=== PATIENT | female | born 1995 | race Caucasian/White ===

== ENCOUNTER 2019-10-15 08:29 | Observation (INO) | payer BC, SELFPAY ==
[2019-10-15] VITALS (12 sets, daily range): BP systolic 112–125; BP diastolic 79–86; PULSE 75–87; RESP 14–20; TEMP 36.8–36.9; O2SAT 98–99; BMI 31.1
--- NOTE | 2019-10-15 08:33 | W.ED.ABDPA2 ---
HPI - Abdominal Pain General: Chief Complaint: Abdominal Pain Stated Complaint: R SIDE PAIN/N/V Time Seen by Provider: 10/15/19 08:31 Source: patient Mode of arrival: ambulatory Limitations: no limitations History of Present Illness: HPI narrative: Patient is a 24-year-old female who presents to ED today with a complaint of left upper abdominal and back pain. Patient tells me pain initially began yesterday and began fairly suddenly. She states pain has been constant with severe exacerbations. She states prior to getting a room in the emergency department she did have one episode of vomiting in the waiting room. She also reports 2 episodes of diarrhea today. She has not noticed any blood in her stools or vomit. She has not been running fevers. She does not complain of dysuria, urgency, frequency, hesitancy, hematuria. LMP was 1 week ago. No history of kidney stones although mother states they do run in the family. MD elicited complaint: abdominal pain Onset (ago): hour(s) Pain Consistency: constant Location: LUQ and L flank Severity: moderate Quality: sharp Exacerbating factors: nothing Relieving factors: nothing Associated Symptoms: Reports chills, diarrhea, nausea and vomiting; Denies coffee ground emesis, dysuria, fever(s), heartburn, hematochezia, hematemesis and melena Review of Systems Const: Reports: chills; Denies: fever(s), body aches, change in appetite, change in weight, fatigue or malaise ENMT: Reports: other (no sore throat) Card: Denies: chest pain Resp: Denies: dyspnea, productive cough, non-productive cough or chest congestion GI: Reports: abdominal pain, nausea, vomiting and diarrhea; Denies: hematemesis, coffee ground emesis, heartburn, hematochezia or melena : Reports: flank pain; Denies: difficulty voiding, dysuria, urinary frequency, urinary urgency or urinary hesitancy Musc: Denies: neck pain, back pain, extremity pain, extremity swelling, joint pain or joint swelling Skin/Breast: Denies: rash Neuro: Denies: headache(s), numbness in extremities, weakness in extremities or sensory changes PFS ED PFSH: Family History (Updated 02/27/19 @ 11:17 by Enedina Troncoso RN) Mother Hypertension Family/Other Hypertension maternal aunt Heart disease maternal side in general Social History (Updated 02/27/19 @ 11:17 by Enedina Troncoso RN) Smoking and tobacco status: never smoked Alcohol intake: never Additional social history: well balanced diet Physical Exam Const: COMMON NORMALS: no acute distress, average body habitus, patient oriented x3, no limitations, healthy appearing, alert and well nourished HENMT: COMMON NORMALS: normocephalic and atraumatic HEAD & SCALP: normocephalic and atraumatic THROAT: posterior oropharynx normal, tonsils normal and uvula midline Eye: GENERAL EYE: appearance normal, both eyes and all related structures Neck/C-Spine: GENERAL: Yes normal visual inspection CERVICAL SPINE: Yes cervical ROM normal Resp: COMMON NORMALS: normal respiratory effort and clear to auscultation bilaterally AUSCULTATION: clear to auscultation bilaterally Cardio: COMMON NORMALS: regular rate and regular rhythm RATE: regular rate RHYTHM: regular rhythm GI: COMMON NORMALS: Normal to inspection, nondistended, normoactive bowel sounds present, Soft to palpation, No hepatosplenomegaly present and no masses PALPATION: Yes Soft to palpation, Yes Tenderness to palpation present (GI) (L lateral abdomen) Details: LUQ and Yes No hepatosplenomegaly present : BLADDER/KIDNEY EXAM: Yes CVA tenderness on the left Back/Pelvis: COMMON NORMALS: thoracic and lumbar spine normal to inspection, no thoracic nor lumbar tenderness and thoraco-lumbar ROM normal GENERAL BACK: Yes CVA tenderness Extremity: COMMON NORMALS: normal to inspection Neuro: COMMON NORMALS: patient oriented x3 SENSORIUM/ORIENTATION: Yes alert Skin: COMMON NORMALS: no rashes or lesions noted GENERAL SKIN EXAM: no rashes or lesions noted Course Consultations: Consultation #1: Dr. Cortez-graciously accepts admission due to not being able to control patient's pain here in ED Vital Signs: Vital signs: Vital Signs Temperature 98.2 F 10/15/19 08:35 Pulse Rate 78 10/15/19 08:35 Respiratory Rate 18 10/15/19 11:11 Blood Pressure 125/86 10/15/19 08:35 Pulse Oximetry 99 10/15/19 08:35 MDM - Abdominal Pain MDM Narrative: Medical decision making narrative: Patient has a large 8 x 6 mm proximal ureter stone causing moderate obstruction. Patient's initial UA was a clean-catch showing leuks, WBCs, bacteria but also with squamous cells. This urine sample was re-collected using cath method and appears clean. Patient's pain has not been able to be controlled in the emergency department despite repeat IV narcotic dosing. I have spoken to Dr. Cortez who will admit patient to his service. Lab Data: Labs: Lab Results 10/15/19 10/15/19 10/15/19 Range/Units 08:49 08:58 08:58 WBC 9.0 (4.0-10.0) 10^3/ uL RBC 4.83 (4.1-5.3) 10^6/u L Hgb 13.0 (11.5-15.3) g/dL Hct 41.9 (37.0-47.0) % MCV 86.7 (81-99) fL MCH 26.9 L (28.0-34.0) pg MCHC 31.0 (30.0-36.0) g/dL RDW 12.8 (12.1-15.1) % Plt Count 231 (130-400) 10^3/c mm MPV 10.7 H (7.4-10.4) fL Neut % (Auto) 76.3 % Lymph % (Auto) 18.6 % Nelson % (Auto) 3.7 % Eos % (Auto) 0.7 % Baso % (Auto) 0.4 % Neut # (Auto) 6.83 (1.8-7.7) 10^3/u L Lymph # (Auto) 1.7 (0.8-4.8) 10^3/u L Nelson # (Auto) 0.3 (0.2-0.9) 10^3/u L Eos # (Auto) 0.1 (0.0-0.8) 10^3/u L Baso # (Auto) 0.0 (0.0-0.1) 10^3/u L Nucleated RBC % (a uto) 0 % Nucleated RBCs # 0.0 /100WBC Sodium 140 (136-145) mmol/L Potassium 3.8 (3.5-5.1) mmol/L Chloride 104 (98-107) mmol/L Carbon Dioxide 26 (22-29) mmol/L Anion Gap 13.8 (5-19) BUN 10 (6-20) mg/dL Creatinine 0.7 (0.5-0.9) mg/dL GFR Calculation 102.0 (90-130) mL/min Glucose 111 (65-115) mg/dL Calculated Osmolal ity 287 (285-295) mOsm/k g Calcium 9.4 (8.5-10.5) mg/dL Total Bilirubin 0.3 (0.15-1.2) mg/dL AST 14 (0-32) U/L ALT 12 (0-33) U/L Alkaline Phosphata se 67 (35-105) IU/L Total Protein 7.7 (6.6-8.7) g/dL Albumin 4.7 (3.5-5.2) g/dL Globulin 3.0 (1.3-4.6) g/dL Lipase 23 (13-60) U/L HCG, Qual (Negative) Urine Color Yellow (Yellow) Urine Appearance Sl hazy (CLEAR) Urine pH 5.0 (5-7) Ur Specific Gravit y 1.025 (1.005-1.030) Urine Protein Neg (Negative) Urine Glucose (UA) Norm (Normal) Urine Ketones Negative (Negative) Urine Blood 2+ H (Negative) Urine Nitrate Negative (Negative) Urine Bilirubin Neg (NEGATIVE) Urine Urobilinogen Norm (Negative) mg/dL Ur Leukocyte Maya ase 2+ H (Negative) Urine RBC 50-80 H (0-2) /hpf Urine WBC 10-15 H (0-5) /hpf Ur Squamous Epith Cells 10-15 H (0-5) Amorphous Sediment Not Reportable Urine Bacteria 2+ H (NONE) Urine Mucus Trace 10/15/19 10/15/19 Range/Units 08:58 11:37 WBC (4.0-10.0) 10^3/ uL RBC (4.1-5.3) 10^6/u L Hgb (11.5-15.3) g/dL Hct (37.0-47.0) % MCV (81-99) fL MCH (28.0-34.0) pg MCHC (30.0-36.0) g/dL RDW (12.1-15.1) % Plt Count (130-400) 10^3/c mm MPV (7.4-10.4) fL Neut % (Auto) % Lymph % (Auto) % Nelson % (Auto) % Eos % (Auto) % Baso % (Auto) % Neut # (Auto) (1.8-7.7) 10^3/u L Lymph # (Auto) (0.8-4.8) 10^3/u L Nelson # (Auto) (0.2-0.9) 10^3/u L Eos # (Auto) (0.0-0.8) 10^3/u L Baso # (Auto) (0.0-0.1) 10^3/u L Nucleated RBC % (a uto) % Nucleated RBCs # /100WBC Sodium (136-145) mmol/L Potassium (3.5-5.1) mmol/L Chloride (98-107) mmol/L Carbon Dioxide (22-29) mmol/L Anion Gap (5-19) BUN (6-20) mg/dL Creatinine (0.5-0.9) mg/dL GFR Calculation (90-130) mL/min Glucose (65-115) mg/dL Calculated Osmolal ity (285-295) mOsm/k g Calcium (8.5-10.5) mg/dL Total Bilirubin (0.15-1.2) mg/dL AST (0-32) U/L ALT (0-33) U/L Alkaline Phosphata se (35-105) IU/L Total Protein (6.6-8.7) g/dL Albumin (3.5-5.2) g/dL Globulin (1.3-4.6) g/dL Lipase (13-60) U/L HCG, Qual Negative (Negative) Urine Color Yellow (Yellow) Urine Appearance Clear (CLEAR) Urine pH 6 (5-7) Ur Specific Gravit y 1.020 (1.005-1.030) Urine Protein Neg (Negative) Urine Glucose (UA) Norm (Normal) Urine Ketones 1+ H (Negative) Urine Blood 2+ H (Negative) Urine Nitrate Negative (Negative) Urine Bilirubin Neg (NEGATIVE) Urine Urobilinogen Norm (Negative) mg/dL Ur Leukocyte Maya ase Negative (Negative) Urine RBC (0-2) /hpf Urine WBC (0-5) /hpf Ur Squamous Epith Cells (0-5) Amorphous Sediment Urine Bacteria (NONE) Urine Mucus Imaging Data ^: CT Abd/Pel: Radiologist's impression: [facility] [address] [place] [address] CT Scan Report Signed Patient: Adeola Cai Unit #: [id number] : 1995 Age/Sex: 24 / F ADM Date: 10/15/19 Loc: ER Room/Bed: Attending Dr: Ordering Provider/Ordering MD: Lissett Christensen Date of Service: 10/15/19 Procedure(s): CT kidney stone 65881 Accession Number(s): [id number] Report Number: [id number] WS: [id number] CT ABDOMEN AND PELVIS NONCONTRAST HISTORY: L flank/abdominal pain TECHNIQUE: Imaging performed through the abdomen and pelvis. Coronal and sagittal reformats are submitted. All CT scans at [facility] use at least one of these dose optimization techniques: automated exposure control; mA and/or kV adjustment per patient size (includes targeted exams where dose is matched to clinical indication); or iterative reconstruction. DLP: 1180.99 mGy.cm COMPARISON: 03/25/2016 Lower thorax: Lung bases are clear. No hiatal hernia. Liver: Liver is top normal size. No mass or intrahepatic dilatation. Gallbladder: Normal gallbladder. Pancreas: Normal. Spleen: Normal. Adrenal glands: Normal. Right kidney: Normal size kidney. 2 mm nonobstructing calcification upper pole. No obstruction. Left kidney: Mild enlargement and perinephric stranding. Moderate hydronephrosis and hydroureter. Within the proximal LEFT ureter is a slightly lobulated 8 x 6 mm calcification versus 2 adjacent calcifications. Ureter distal to the calcification is normal. There are a few additional nonobstructing calcifications lower pole LEFT kidney. Abdominal aorta and IVC are unremarkable. No free fluid, intraperitoneal air or significant lymphadenopathy. GI tract: Unremarkable. Abdominal wall: Intact. Pelvis: Slightly retroverted uterus. Bilateral ovarian follicles. No free fluid. Minimally distended urinary bladder. Osseous structures: Mild RIGHT convex curvature lumbar spine. Bilateral SI joint sclerosis. Progressed significantly since 2017. CT/CT kidney stone [id number] IMPRESSION: 1. A single versus 2 adjacent 8 x 6 mm calcifications in the proximal LEFT ureter causing a moderate hydroureteronephrosis. 2. Mild enlargement and edema LEFT kidney due to the obstruction. 3. Normal appendix. 4. Bilateral sacroiliitis with progression since 2017. Dictated By: Romana Syed DO Signed By: Romana Syed DO Signed Date/Time: 10/15/19 1011 DD/ 1004 Discharge Plan Discharge Patient Disposition: Admitted As Inpatient Clinical Impression: Calculus of left ureter, Intractable pain Condition: Stable Prescriptions: No Action Tylenol Extra Strength 500 mg Tablet 500 mg PO PRN RF: 0 Pepto-Bismol 262 mg Tablet,Chewable 2 tab PO PRN RF: 0 Referrals: Colmenares,ISAIAS Weaver [Primary Care Provider] - Coding Level of Care Code ED Senior Peoplesoft Developer for Chg Fwd Exam Comprehensive
[2019-10-15 09:07] LABS: Basophils % 0.4 %; Eosinophils # 0.1 10^3/uL (0.0-0.8); Eosinophils % 0.7 %; Hematocrit 41.9 % (37.0-47.0); Lymphocytes # 1.7 10^3/uL (0.8-4.8); Lymphocytes % 18.6 %; Mean Corpuscular Hemoglobin 26.9 pg (28.0-34.0); Mean Corpuscular Volume 86.7 fL (81-99); Mean Platelet Volume 10.7 fL (7.4-10.4); Monocytes # 0.3 10^3/uL (0.2-0.9); Monocytes % 3.7 %; Neutrophils # 6.83 10^3/uL (1.8-7.7); Neutrophils % 76.3 %; Nucleated Red Blood Cells % 0 %; Platelet Count 231 10^3/cmm (130-400); Red Blood Count 4.83 10^6/uL (4.1-5.3); Red Cell Distribution Width 12.8 % (12.1-15.1)
[2019-10-15 09:24] LABS: HCG, Serum Qual Negative (Negative)
[2019-10-15 09:28] LABS: Alanine Aminotransferase 12 U/L (0-33); Albumin Level 4.7 g/dL (3.5-5.2); Alkaline Phosphatase 67 IU/L (35-105); Anion Gap 13.8 (5-19); Aspartate Amino Transferase 14 U/L (0-32); Blood Urea Nitrogen 10 mg/dL (6-20); Calcium 9.4 mg/dL (8.5-10.5); Carbon Dioxide 26 mmol/L (22-29); Chloride 104 mmol/L (98-107); Creatinine Clr Calc Pharmacy 118.1231; Glucose 111 mg/dL (65-115); Lipase 23 U/L (13-60); Osmolality Calculated 287 mOsm/kg (285-295); Potassium 3.8 mmol/L (3.5-5.1); Sodium 140 mmol/L (136-145); Total Bilirubin 0.3 mg/dL (0.15-1.2); Total Protein 7.7 g/dL (6.6-8.7)
[2019-10-15] MEDS: ondansetron 2 mg/ML SDV 2 mL 4 MG IVP ×2 (09:30→16:05)
[2019-10-15] MEDS: morphine 4 mg/mL SDV 1 mL IVP ×4 (09:32→21:23)
[2019-10-15 09:33] LABS: Add Urine Culture? Yes; Add Urine Microscopic? YES; Bacteria Urine 2+; Bilirubin Urine Neg (NEGATIVE); Blood Urine 2+ (Negative); Glucose Urine UA Norm (Normal); Ketones Urine Negative (Negative); Leukocyte Esterase Urine 2+ (Negative); Mucus Urine TRACE; Nitrate Urine Negative (Negative); Protein Urine Neg (Negative); RBC Urine 50-80 /hpf (0-2); Specific Gravity, Urine 1.025 (1.005-1.030); Urine Appearance SL Hazy (CLEAR); Urine Color Yellow (Yellow); Urobilinogen Urine Norm (Negative)
[2019-10-15] MEDS: sodium chloride 0.9% 1,000 ML 999 ML IV ×2 (09:33→14:16)
--- NOTE | 2019-10-15 09:34 | CT_ITS ---
WS: [id number] CT ABDOMEN AND PELVIS NONCONTRAST HISTORY: L flank/abdominal pain TECHNIQUE: Imaging performed through the abdomen and pelvis. Coronal and sagittal reformats are submi tted. All CT scans at [facility] use at least one of these dose optimization techniques: automated exposure control; mA and/or kV adjustment per patient size (includes targeted exams where d ose is matched to clinical indication); or iterative reconstruction. DLP: 1180.99 mGy.cm COMPARISON: 03/25/2016 Lower thorax: Lung bases are clear. No hiatal hernia. Liver: Liver is top normal size. No mass or intrahepatic dilatation. Gallbladder: Normal gallbladder. Pancreas: Normal. Spleen: Normal. Adrenal glands: Normal. Right kidney: Normal size kidney. 2 mm nonobstructing calcification upper pole. No obstruction. Left kidney: Mild enlargement and perinephric stranding. Moderate hydronephrosis and hydroureter. Wit hin the proximal LEFT ureter is a slightly lobulated 8 x 6 mm calcification versus 2 adjacent calcifi cations. Ureter distal to the calcification is normal. There are a few additional nonobstructing calc ifications lower pole LEFT kidney. Abdominal aorta and IVC are unremarkable. No free fluid, intraperitoneal air or significant lymphadenopathy. GI tract: Unremarkable. Abdominal wall: Intact. Pelvis: Slightly retroverted uterus. Bilateral ovarian follicles. No free fluid. Minimally distended urinary bladder. Osseous structures: Mild RIGHT convex curvature lumbar spine. Bilateral SI joint sclerosis. Progresse d significantly since 2017. CT/CT kidney stone [id number] IMPRESSION: 1. A single versus 2 adjacent 8 x 6 mm calcifications in the proximal LEFT ure ter causing a moderate hydroureteronephrosis. 2. Mild enlargement and edema LEFT kidney due to the obstruction. 3. Normal appendix. 4. Bilateral sacroiliitis with progression since 2017.
[2019-10-15] MEDS: cefTRIAXone 1,000 MG in sodium chloride 0.9% (plus) 50 ML 100 MG IV (11:49)
[2019-10-15 12:06] LABS: Bilirubin Urine Neg (NEGATIVE); Blood Urine 2+ (Negative); Glucose Urine UA Norm (Normal); Ketones Urine 1+ (Negative); Leukocyte Esterase Urine Negative (Negative); Nitrate Urine Negative (Negative); Protein Urine Neg (Negative); Urine Appearance Clear (CLEAR); Urine Color Yellow (Yellow); Urobilinogen Urine Norm (Negative); pH Urine 6 (5-7)
[2019-10-15] MEDS: fentaNYL 50 mcg/mL INJ 2mL IVP (12:09)
[2019-10-15 12:47] LABS: Add Urine Microscopic? YES
[2019-10-15] MEDS: oxyCODONE-APAP 5-325 mg Tablet 1 TAB PO ×2 (15:06→20:58)
[2019-10-15] MEDS: sodium chloride 0.9% 1,000 ML 150 ML IV ×2 (15:13→20:58)
[2019-10-15] MEDS: tamsulosin 0.4 mg Capsule PO (15:13)
--- NOTE | 2019-10-15 18:35 | P.HP_ITS ---
Providers/Chief Complaint Admitting Physician: Norris Cortez MD Primary Care Provider: Meg Colmenares APN Chief Complaint: R SIDE PAIN/N/V History of Present Illness Adeola Cai is a 24 year old female who I evaluated for the first time today after being admitted through the emergency department for refractory left renal colic secondary to an 8 mm left proximal ureteral stone. She was aggressively treated with pain medication in the emergency department but is simply could not be adequately controlled. She was also having severe nausea and vomiting. No evidence of active infection. Denies fever or chills. First stone. Does have a family history of stones. Review of Systems Const: Denies: fever(s), chills or body aches Eyes: Denies: change in vision or blurry vision ENMT: Denies: throat pain or change in hearing Card: Denies: chest pain, palpitations or irregular heart rhythm Resp: Denies: dyspnea, productive cough or wheezing GI: Reports: abdominal pain, nausea and vomiting : Reports: flank pain and urinary urgency; Denies: difficulty voiding Musc: Reports: back pain; Denies: neck pain, joint redness or joint warmth Skin/Breast: Denies: rash or new lesions Neuro: Denies: headache(s), numbness in extremities or confusion Psych: Denies: anxiety or depression Endo: Denies: flushing or hot flashes Andrew/Lymph: Denies: easy bruising, easy bleeding or enlarged lymph nodes All/Imm: Denies: urticaria or throat swelling Medications/Allergies Home Medications Medication Instructions Recorded Confirmed Last Taken Type acetaminophen [Tylenol Extra 500 mg PO PRN 10/15/19 10/15/19 10/15/19 07:30 History Strength] bismuth subsalicylate 2 tab PO PRN 10/15/19 10/15/19 10/15/19 04:30 History [Pepto-Bismol] Allergies Allergy/AdvReac Type Severity Reaction Status Date / Time promethazine [From Phenergan] Allergy Intermediate confusion, Verified 10/15/19 09:01 loss of memory PFSH Acute PFSH: Medical History (Updated 10/15/19 @ 18:38 by Norris Cortez MD) Contraception management History of ectopic Surgical History (Updated 10/15/19 @ 18:38 by Norris Cortez MD) History of unilateral salpingectomy 03/25/2016-right, due to ruptured ectopic Family History (Updated 10/15/19 @ 18:39 by Norris Cortez MD) Mother Hypertension Family/Other Hypertension maternal aunt Heart disease maternal side in general Other Urolithiasis Social History (Updated 02/27/19 @ 11:17 by Enedina Troncoso RN) Smoking and tobacco status: never smoked Alcohol intake: never Additional social history: well balanced diet Female Reproductive History: Date of last menstrual period: 10/10/19 Vitals/I&O/Wt Last Vital Signs Temp 98.5 F 10/15/19 14:44 Pulse 80 10/15/19 14:44 Resp 18 10/15/19 16:05 BP 124/85 10/15/19 14:44 Pulse Ox 98 10/15/19 14:44 10/15/19 10/15/19 10/15/19 06:59 14:59 22:59 Output Total 150 / 150 Balance -150 / -150 Weight last 48 hrs Weight 170 lb Physical Exam Const: COMMON NORMALS: no acute distress, alert and well nourished GENERAL APPEARANCE: well kempt and well developed ORIENTATION/CONSCIOUSNESS: not confused HENMT: COMMON NORMALS: normocephalic and atraumatic Eye: COMMON NORMALS: conjunctivae normal and no scleral icterus CONJUNCTIVA: Yes conjunctivae normal Neck/C-Spine: COMMON NORMALS: full ROM GENERAL: Yes normal visual inspection Lymph: LYMPHATIC: no lymphadenopathy noted and no lymphedema noted Resp: COMMON NORMALS: normal respiratory effort EFFORT & INSPECTION: No labored and No Actively coughing AUSCULTATION: clear to auscultation bilaterally Cardio: COMMON NORMALS: regular rate and regular rhythm GI: COMMON NORMALS: Soft to palpation PALPATION: Yes Tenderness to palpation present (GI) and No Guarding due to palpation present (GI) : COMMON NORMALS: No no CVA tenderness and Yes normal external appearance BLADDER/KIDNEY EXAM: Yes bladder normal to palpation Back/Pelvis: GENERAL BACK: Yes CVA tenderness CVA tenderness: left Extremity: COMMON NORMALS: no clubbing, cyanosis or edema Neuro: COMMON NORMALS: no focal motor deficits SENSORIUM/ORIENTATION: Yes alert Psych: COMMON NORMALS: mental status grossly normal APPEARANCE: Yes grossly normal and Yes well kempt ATTITUDE: Yes calm and Yes engaged Skin: COMMON NORMALS: no rashes or lesions noted and no jaundice Data : 10/16/19 04:50 10/16/19 04:50 A&P Assessment and plan (1) Intractable pain: Severe left renal colicky symptoms very difficult to control with large doses of narcotics in the emergency department requiring hospitalization for pain control. Source of pain is a large left proximal ureteral stone with obstructive changes. Status: Acute (2) Calculus of left ureter: 8 mm plus left proximal ureteral stone with obstruction. Failed outpatient management. Could not get pain well controlled with narcotics parenterally enough to be L to send home. Status: Acute Attestations Medical Necessity Statement*: Could not be managed outpatient due to refractory pain. Low chance of spontaneous passage of stone. Will consider treatment while hospitalized. Coding Level of Care Code Acute Victim Witness Administrator for Crystal Fwd Exam Comprehensive Diagnoses Intractable pain R52 Calculus of left ureter N20.1
[2019-10-16] VITALS (19 sets, daily range): BP systolic 104–133; BP diastolic 69–88; PULSE 90–106; RESP 16–20; TEMP 36.6–37.3; O2SAT 93–98
[2019-10-16] MEDS: morphine 4 mg/mL SDV 1 mL IVP ×2 (03:45→13:34)
[2019-10-16] MEDS: ondansetron 2 mg/ML SDV 2 mL 4 MG IVP ×3 (03:46→20:38)
[2019-10-16] MEDS: sodium chloride 0.9% 1,000 ML 150 ML IV ×2 (03:46→21:53)
[2019-10-16 05:20] LABS: Basophils % 0.4 %; Eosinophils % 0.5 %; Hematocrit 37.4 % (37.0-47.0); Hemoglobin 11.3 g/dL (11.5-15.3); Lymphocytes # 1.7 10^3/uL (0.8-4.8); Lymphocytes % 20.4 %; Mean Corpuscular HGB Conc 30.2 g/dL (30.0-36.0); Mean Corpuscular Hemoglobin 26.8 pg (28.0-34.0); Mean Corpuscular Volume 88.8 fL (81-99); Mean Platelet Volume 11.1 fL (7.4-10.4); Monocytes # 0.6 10^3/uL (0.2-0.9); Monocytes % 7.1 %; Neutrophils % 71.2 %; Nucleated Red Blood Cells % 0 %; Platelet Count 147 10^3/cmm (130-400); Red Blood Count 4.21 10^6/uL (4.1-5.3); Red Cell Distribution Width 12.9 % (12.1-15.1); White Blood Count 8.4 10^3/uL (4.0-10.0)
[2019-10-16 05:48] LABS: Anion Gap 11.7 (5-19); Blood Urea Nitrogen 8 mg/dL (6-20); Calcium 7.9 mg/dL (8.5-10.5); Carbon Dioxide 21 mmol/L (22-29); Chloride 107 mmol/L (98-107); Glomerular Filtration Rate 76.3 mL/min (90-130); Glucose 112 mg/dL (65-115); Osmolality Calculated 279 mOsm/kg (285-295); Potassium 3.7 mmol/L (3.5-5.1); Sodium 136 mmol/L (136-145)
--- NOTE | 2019-10-16 06:00 | XR_ITS ---
WS: [id number] EXAM: ABDOMINAL KUB DATE OF EXAMINATION: 10/16/2019, 0550 hours COMPARISON: CT of the abdomen and pelvis from one day prior. HISTORY: Patient is 24 years old with follow-up left ureteral stone. FINDINGS: Bowel gas pattern is fairly normal other than air-filled loops of nondilated small bowel. The bilobed or 2 areas of calcification in the proximal left ureter appear to be in stable position. Estimated 7 mm in [id number] dimension and 1 cm in vertical dimension. Now located at the L2-3 disc level on t his exam. Similar to the CT exam. No calcifications seen over the right kidney or course of the right ureter or lower left ureter. XR/XR KUB [id number] IMPRESSION: Either 2 stones or bilobed stone on the left in stable position as compared to imaging from one day prior. Located at the L2-3 level.
--- NOTE | 2019-10-16 06:33 | PC.NURSE ---
Shift Summary: Pt rested well this evening, pain fairly well controlled with one episode of nausea. Moderate urine output, clear in color with no stones noted.
--- NOTE | 2019-10-16 07:03 | PM.PN ---
Subjective Subjective: Interval history: Still with intermittent left renal colicky symptoms but much better controlled than yesterday. KUB this morning shows the stone has not progressed at all. No fever no chills no other septic concerns. Reviewed again her options. After detailed discussion she is elected to proceed with extracorporeal shockwave lithotripsy when the machine is available this evening with or without stent pending response to treatment. Informed consent was obtained after detailed explanation. Decision for surgery Vitals/I&O/Wt Last Vital Signs Temp 97.8 F 10/16/19 04:00 Pulse 97 10/16/19 04:00 Resp 20 H 10/16/19 04:00 BP 104/70 10/16/19 04:00 Pulse Ox 94 10/16/19 04:00 10/15/19 10/16/19 10/16/19 22:59 06:59 14:59 Intake Total 1062.5 / 1062.5 1000 / 2062.5 Output Total 425 / 425 400 / 825 Balance 637.5 / 637.5 600 / 1237.5 Weight last 48 hrs Weight 170 lb Physical Exam Const: COMMON NORMALS: no acute distress, alert and well nourished GENERAL APPEARANCE: well kempt and well developed ORIENTATION/CONSCIOUSNESS: not confused Resp: COMMON NORMALS: normal respiratory effort EFFORT & INSPECTION: No labored and No Actively coughing Extremity: COMMON NORMALS: no clubbing, cyanosis or edema Neuro: SENSORIUM/ORIENTATION: Yes alert Psych: COMMON NORMALS: mental status grossly normal APPEARANCE: Yes grossly normal and Yes well kempt ATTITUDE: Yes calm and Yes engaged Data : 10/16/19 04:50 10/16/19 04:50 A&P Assessment and plan (1) Calculus of left ureter: No progress of the stone. Still requiring pain medication. Options discussed including conservative management. She elected rather than that to proceed with intervention. ESWL will be here this evening Status: Acute (2) Intractable pain: Status: Acute Attestations Medical Necessity Statement*: Admitted for left renal colic that was refractory. No progress on the stone. Has chosen therapy while inpatient in order to avoid recurrent renal colic Coding Level of Care Code Acute Surgical Instrument Maker for [facility] Pamela Diagnoses Calculus of left ureter N20.1 Intractable pain R52
--- NOTE | 2019-10-16 07:22 | PC.NURSE ---
patient resting with eyes closed upon entering room, patient easily aroused, denies pain with decrease nausea.
--- NOTE | 2019-10-16 08:33 | P.ANESASSM_ITS ---
Pre-Anesthetic Assessment Pre-Anesthetic Assessment: Height/Weight: Height 1.57 m Weight 77.111 kg Temp Pulse Resp BP Pulse Ox 98.0 F 94 16 110/75 98 10/16/19 07:17 10/16/19 07:17 10/16/19 07:17 10/16/19 07:17 10/16/19 07:17 Proposed Procedure: Operation Date: 10/16/19 18:00 Proposed Procedures s cytoscopy(Left) - Norris Cortez MD p ESWL(Left) - Norris Cortez MD s Retrograde Pyelogram(Left) - MD brynn Umaña Laser Lithotripsy(Left) - Norris Cortez MD s Ureteroscopy(Not Applicable) - Norris Cortez MD Familial anesthetic complications: None Last intake: Eating clears; will stop at 0900 Social: Social History: No alcohol and No tobacco Exam: Pre-Anes Outpt Exam: alert, oriented x 3, clear to auscultation bilaterally and regular rate & rhythm Airway: Cervical ROM: WNL MP: 3 Dentition: Full Metabolic: Metabolic: Morbid obesity Anesthetic Plan: ASA status: 1 Anesthesia: General Risk of > 500 ml blood loss (7ml/kg in children): No Meds/Allergies Current Medications: Current Medications Generic Name Dose Route Start Last Admin Trade Name Freq PRN Reason Stop Dose Admin Sodium Chloride 1,000 mls @ 150 m ls/hr 10/15/19 14:44 10/16/19 03:46 Sodium Chloride 0.9% IV 150 mls/hr .Q6H40M MAX Administration Morphine Sulfate 4 mg 10/15/19 14:44 10/16/19 03:45 Morphine IVP 4 mg Q2H PRN Administration SEVERE PAIN Ondansetron HCl 4 mg 10/15/19 14:44 10/16/19 03:46 Zofran IVP 4 mg Q6H PRN Administration NAUSEA AND VOMITI NG Oxycodone/Acetamin ophen 1 tab 10/15/19 14:44 10/15/19 20:58 Percocet 5-325 M g PO 1 tab Q6H PRN Administration stone pain Tamsulosin HCl 0.4 mg 10/15/19 15:15 10/15/19 15:13 Flomax PO 0.4 mg DAILY MAX Administration PFSH Anesthesia PFSH: Medical History (Updated 10/15/19 @ 18:38 by Norris Cortez MD) Contraception management History of ectopic Surgical History (Updated 10/15/19 @ 18:38 by Norris Cortez MD) History of unilateral salpingectomy 03/25/2016-right, due to ruptured ectopic Family History (Updated 10/15/19 @ 18:39 by Norris Cortez MD) Mother Hypertension Family/Other Hypertension maternal aunt Heart disease maternal side in general Other Urolithiasis Social History (Updated 02/27/19 @ 11:17 by Enedina Troncoso RN) Smoking and tobacco status: never smoked Alcohol intake: never Additional social history: well balanced diet Female Reproductive History: Date of last menstrual period: 10/10/19 Data Anesthesia CBC & Chem 7: 10/16/19 04:50 10/16/19 04:50 Other Labs: Laboratory Results - last 48 hr 10/15/19 10/15/19 10/15/19 08:49 08:58 08:58 WBC 9.0 RBC 4.83 Hgb 13.0 Hct 41.9 MCV 86.7 MCH 26.9 L MCHC 31.0 RDW 12.8 Plt Count 231 MPV 10.7 H Neut % (Auto) 76.3 Lymph % (Auto) 18.6 [place] % (Auto) 3.7 Eos % (Auto) 0.7 Baso % (Auto) 0.4 Neut # (Auto) 6.83 Lymph # (Auto) 1.7 [place] # (Auto) 0.3 Eos # (Auto) 0.1 Baso # (Auto) 0.0 Nucleated RBC % (auto) 0 Nucleated RBCs # 0.0 Sodium 140 Potassium 3.8 Chloride 104 Carbon Dioxide 26 Anion Gap 13.8 BUN 10 Creatinine 0.7 GFR Calculation 102.0 Glucose 111 Calculated Osmolality 287 Calcium 9.4 Total Bilirubin 0.3 AST 14 ALT 12 Alkaline Phosphatase 67 Total Protein 7.7 Albumin 4.7 Globulin 3.0 Lipase 23 HCG, Qual Urine Color Yellow Urine Appearance Sl hazy Urine pH 5.0 Ur Specific [place] 1.025 Urine Protein Neg Urine Glucose (UA) Norm Urine Ketones Negative Urine Blood 2+ H Urine Nitrate Negative Urine Bilirubin Neg Urine Urobilinogen Norm Ur Leukocyte Esterase 2+ H Urine RBC 50-80 H Urine WBC 10-15 H Ur Squamous Epith Cells 10-15 H Amorphous Sediment Not Reportable Urine Bacteria 2+ H Urine Mucus Trace 10/15/19 10/15/19 10/16/19 08:58 11:37 04:50 WBC 8.4 RBC 4.21 Hgb 11.3 L Hct 37.4 MCV 88.8 MCH 26.8 L MCHC 30.2 RDW 12.9 Plt Count 147 MPV 11.1 H Neut % (Auto) 71.2 Lymph % (Auto) 20.4 [place] % (Auto) 7.1 Eos % (Auto) 0.5 Baso % (Auto) 0.4 Neut # (Auto) 6.00 Lymph # (Auto) 1.7 [place] # (Auto) 0.6 Eos # (Auto) 0.0 Baso # (Auto) 0.0 Nucleated RBC % (auto) 0 Nucleated RBCs # 0.0 Sodium Potassium Chloride Carbon Dioxide Anion Gap BUN Creatinine GFR Calculation Glucose Calculated Osmolality Calcium Total Bilirubin AST ALT Alkaline Phosphatase Total Protein Albumin Globulin Lipase HCG, Qual Negative Urine Color Yellow Urine Appearance Clear Urine pH 6 Ur Specific [place] 1.020 Urine Protein Neg Urine Glucose (UA) Norm Urine Ketones 1+ H Urine Blood 2+ H Urine Nitrate Negative Urine Bilirubin Neg Urine Urobilinogen Norm Ur Leukocyte Esterase Negative Urine RBC Urine WBC Ur Squamous Epith Cells Amorphous Sediment Urine Bacteria Urine Mucus 10/16/19 04:50 WBC RBC Hgb Hct MCV MCH MCHC RDW Plt Count MPV Neut % (Auto) Lymph % (Auto) [place] % (Auto) Eos % (Auto) Baso % (Auto) Neut # (Auto) Lymph # (Auto) [place] # (Auto) Eos # (Auto) Baso # (Auto) Nucleated RBC % (auto) Nucleated RBCs # Sodium 136 Potassium 3.7 Chloride 107 Carbon Dioxide 21 L Anion Gap 11.7 BUN 8 Creatinine 0.9 GFR Calculation 76.3 L Glucose 112 Calculated Osmolality 279 L Calcium 7.9 L Total Bilirubin AST ALT Alkaline Phosphatase Total Protein Albumin Globulin Lipase HCG, Qual Urine Color Urine Appearance Urine pH Ur Specific [place] Urine Protein Urine Glucose (UA) Urine Ketones Urine Blood Urine Nitrate Urine Bilirubin Urine Urobilinogen Ur Leukocyte Esterase Urine RBC Urine WBC Ur Squamous Epith Cells Amorphous Sediment Urine Bacteria Urine Mucus Cardiac Studies: No Data to Display
[2019-10-16] MEDS: oxyCODONE-APAP 5-325 mg Tablet 1 TAB PO ×2 (08:34→20:25)
[2019-10-16 08:35] LABS: Glucose Point of Care 108 mg/dL (70-110)
[2019-10-16] MEDS: tamsulosin 0.4 mg Capsule PO (08:35)
--- NOTE | 2019-10-16 14:01 | PC.CHAP ---
Pastoral Care Encounter/Spiritual Assessment Type of Contact [] Declined varnisher plasticoater visit [] Patient/Family/Request visit [] Outpatient visit [] Follow-up visit [] Physician referral [] Code/Alert [x] Routine visit [] Staff referral [] Actively dying [] Patient sleeping [] Family support [] [] Out of room [] Palliative care [] [] Receiving care in room [] Pre-surgical visit [] Trauma [] Long length of stay [] ICU visit [] Other: Relational/Emotional Strength [x] Patient feels connected with others/family/visitors/staff [] Distress [] Loneliness/isolation [] Abandonment Spirituality of Patient [] Person of Nayely [] Attends Christianity of their Nayely [] Believes in Prayer [] Reads Bible or Bahai materials [x] There are Spiritual issues to be addressed Smelter Liner Interventions [x] Prayer [x] Active listening [x] Non-anxious presence [x] Spiritual/emotional support [] Crisis/trauma care [x] Spiritual counseling [] Bereavement support [] Provided bereavement packet [] Provided Bible/devotional materials [] Provided toy/stuffed animal, coloring book to patient or family member [] Provided Communion [] Anointing/[place] [] Salvation [x] Completed spiritual assessment [] Other: Impact on Illness or Injury [] Angry [] Fearful [] Anxious [] Often cries [] Exhaustion [] Unable to work [] Unable to attend methodist [] Unable to walk/stand [] Unable to read [] Unable to drive [] Unable to eat/drink [] Unable to sleep [] Unable to be with family [] Patient intubated [x] Other: Summary Patient has intellectual knowledge of Lord Glez only. The gospel of Jesse was shared along with encouragement. Time spent with patient 10 minutes
--- NOTE | 2019-10-16 16:54 | PC.NURSE ---
Prn note Patient is off the floor for surgery.
[2019-10-16] MEDS: sodium chloride 0.9% 1,000 ML 30 ML IV (17:24)
--- NOTE | 2019-10-16 17:42 | PM.OP ---
Operative Report Date of procedure: October 16, 2019 Pre-op Diagnosis: Left proximal ureteral stone with refractory renal colic Post-op diagnosis: same Procedure Done: 1. Extracorporeal shockwave lithotripsy Pathology: none sent Grooving Machine Operator: Lithotripsy Sharepoint Web Developer: Nestor Gilliland Anesthesia: General Estimated blood loss: None Urine output: Not measured Complications: None Findings: 3000 shocks administered with excellent change Condition: stable Disposition: PACU Brief History: Shana is a very pleasant 24-year-old white female who was admitted through the emergency department for severe refractory left renal colic with failure of aggressive pain medication usage to control the pain well enough for discharge home and continue conservative management of a 8 mm left proximal ureteral stone. She continued to have intermittent pain requiring parenteral narcotics and ultimately chose to proceed with treatment. Arrangements have been made for ESWL unit to be brought in specially for this. Discussed stent versus no stent and decision will be made to place a stent pending her response to treatment Procedure: After urgent evaluation examination and obtaining of informed consent she was taken to the operating suite on 10/16/2019 where general anesthesia was administered without difficulty after appropriate timeout was performed, SCDs confirmed to be functioning, preoperative antibiotics administered, beta-kingston protocol confirmed. Positioned on the Dornier unit in supine position such that the stone was located at the focal point. Stone was easily identified. Shockwave therapy was initiated at intensity of 1 and advance to an intensity of 4. Initial rate was 60 and maintained that until about 1500 shocks. Real-time position changes based on fluoroscopy were made as indicated. The stone showed EXCELLENT change. By the completion of the procedure could not be readily identified. A total of 2500 shocks were administered. Based on those findings it was decided to not leave a stent indwelling. She tolerated the procedure well without complications and was awakened in the operating room and returned to the recovery room in stable condition. PLANS: 1. We will plan on observing her overnight and if she is doing well then discharge in the morning. 2. We will switch to inpatient status due to care spanning 2 nights stay
--- NOTE | 2019-10-16 17:52 | PM.DCS ---
Discharge Providers Date of Admission: 10/15/19 12:31 Date of Discharge: October 17, 2019 Attending Provider at Admission: Norris Cortez MD Attending Provider at Discharge: Norris Cortez MD Primary Care Provider: Meg Colmenares APN Diagnoses at Discharge Discharge Diagnosis (1) Calculus of left ureter: Status: Acute Problem details: Large stone with high-grade obstruction and refractory pain. Treated with ESWL with excellent response (2) Intractable pain: Status: Acute Problem details: Secondary to large left obstructing proximal ureteral stone Reason for Visit Reason for Visit: R SIDE PAIN/N/V Hospital Course Discharge Summary: She was admitted on 10/15/2019 for refractory pain that could not be controlled adequately in the emergency department. Was not a candidate for further discharge home. Aggressively managed with parenteral narcotics which improved her scenario but she was still requiring them on hospital day #2. KUB showed that the stone had not progressed when given her options of further conservative therapy either on outpatient basis, as inpatient, or aggressive therapy with attempt at definitive therapy via ESWL or endoscopy she chose ESWL with or without stent based on response to treatment. On the evening of 10/16/2019 she underwent ESWL. The stone fragmented very well. She was observed overnight after surgery and felt to be a good candidate for discharge the following morning and discharged in stable condition with instructions to follow-up with a KUB in approximately 1 month. Physical Exam Const: COMMON NORMALS: no acute distress, alert and well nourished GENERAL APPEARANCE: well kempt and well developed ORIENTATION/CONSCIOUSNESS: not confused Eye: COMMON NORMALS: conjunctivae normal and no scleral icterus CONJUNCTIVA: Yes conjunctivae normal Resp: COMMON NORMALS: normal respiratory effort EFFORT & INSPECTION: No labored and No Actively coughing Neuro: SENSORIUM/ORIENTATION: Yes alert Psych: COMMON NORMALS: mental status grossly normal APPEARANCE: Yes grossly normal and Yes well kempt ATTITUDE: Yes calm and Yes engaged Skin: COMMON NORMALS: no rashes or lesions noted and no jaundice GENERAL SKIN EXAM: no rashes or lesions noted Discharge Data Data Completed and Pending: Completed Studies During Hospitalization Category Date Time Status CT kidney stone 7 4176 Urgent Cat Scan 10/15/19 09:34 Completed XR KUB [id number] Rout ine Exams 10/16/19 06:00 Completed Pending at discharge Category Date Time Status Urine Culture Sta t Lab 10/15/19 08:49 Results Labs from last 24 hours 10/16/19 10/16/19 10/16/19 08:31 04:50 04:50 WBC 8.4 RBC 4.21 Hgb 11.3 L Hct 37.4 MCV 88.8 MCH 26.8 L MCHC 30.2 RDW 12.9 Plt Count 147 MPV 11.1 H Neut % (Auto) 71.2 Lymph % (Auto) 20.4 Kings % (Auto) 7.1 Eos % (Auto) 0.5 Baso % (Auto) 0.4 Neut # (Auto) 6.00 Lymph # (Auto) 1.7 Kings # (Auto) 0.6 Eos # (Auto) 0.0 Baso # (Auto) 0.0 Nucleated RBC % (a uto) 0 Nucleated RBCs # 0.0 Sodium 136 Potassium 3.7 Chloride 107 Carbon Dioxide 21 L Anion Gap 11.7 BUN 8 Creatinine 0.9 GFR Calculation 76.3 L Glucose 112 POC Glucose 108 Calculated Osmolal ity 279 L Calcium 7.9 L Vitals: Last Vital Signs Temp 98.6 F 10/16/19 16:59 Pulse 102 H 10/16/19 16:59 Resp 16 10/16/19 16:59 BP 127/88 10/16/19 16:59 Pulse Ox 97 10/16/19 16:59 Discharge Plan Discharge Condition: Stable Prescriptions: [place] 5-325 mg tablet 1 tab PO Q8H PRN (Reason: pain) Qty: 14 RF: 0 Continued Tylenol Extra Strength 500 mg Tablet 500 mg PO PRN RF: 0 Pepto-Bismol 262 mg Tablet,Chewable 2 tab PO PRN RF: 0 Discharge Orders: Discharge Order (Routine); Ordered 10/16/19 Ordered By: Norris Cortez Referrals: Norris Cortez MD [Physician] - 1 week (Please call patient at home with a follow up appointment in 1 week. Faxed information clinic) Meg Colmenares APN [Primary Care Provider] - (Please call patient at home with a hospital follow up appointment. Faxed information to the clinic) Patient Instructions: Hydrocodone (By mouth), Kidney Stones (DC) Discharge Attestations Time Spent in Discharge Care*: less than 30 min Quality Metrics Clinical Quality Measures During this hospital stay, did patient experience: None Coding Level of Care Code Acute Cemetery Counselor for Chg Fwd Exam Detailed Diagnoses Calculus of left ureter N20.1 Intractable pain R52
[2019-10-16] MEDS: levofloxacin-dextrose 5 % 500 MG/100 ML PREMIX 100 MG IV (18:00)
--- NOTE | 2019-10-16 19:09 | SUR.PHASEI ---
PT AWAKE ALERT DENIES PAIN PT TAKING OCC ICE CHIPS VERBALIZING APPROPRIATELY VSS. PT REMAINS ON RA SATS 94% WITH NO DISTRESS PT SLEEPS IF NOT DISTURBED
[2019-10-17 05:00] VITALS: BP 114/80; PULSE 92; RESP 17; TEMP 37.2; O2SAT 93
[2019-10-17] MEDS: sodium chloride 0.9% 1,000 ML 150 ML IV (05:00)
[2019-10-17 06:50] VITALS: RESP 18
[2019-10-17] MEDS: oxyCODONE-APAP 5-325 mg Tablet 1 TAB PO (06:50)
[2019-10-17 07:33] VITALS: BP 124/86; PULSE 88; RESP 16; TEMP 37.1; O2SAT 97
[2019-10-17 08:04] VITALS: BP 124/86; PULSE 88; RESP 16; TEMP 37.1; O2SAT 97
[2019-10-17] MEDS: tamsulosin 0.4 mg Capsule PO (09:11)
[2019-10-17 10:13] VITALS: BP 124/86; PULSE 88; RESP 16; TEMP 37.1; O2SAT 97
== END 2019-10-17 10:15 | disposition home or self-care (01) ==
LOC: ER 12:38 → MEDSURG 14:17
PROVIDERS: Emergency Medicine; Physician Assistant; Admitting Provider Urology; PCP Nurse Practitioner Family; Visit Provider Urology
PROC: (CPT 50590; 2019-10-16 18:00)
DX: N13.2 Hydronephrosis with renal and ureteral calculous obstruction (principal)
CPT/HCPCS: 50590; 12345; 36415; 36416; 74018; 74176; 80048; 80053; 81001; 82962; 83690; 84703; 85025; 87086; 96360; 96361; 96375; 99283; G0378; J0696; J1956; J2270; J2405; J2704; J2710; J3010; J3490; J7030

== ENCOUNTER → 2020-03-26 11:44 | Outpatient (BNVA) | payer BC, SELFPAY | PROVIDERS: PCP Nurse Practitioner Family; Visit Provider Nurse Practitioner Family | DX: J02.0 Streptococcal pharyngitis (principal); J01.10 Acute frontal sinusitis, unspecified | CPT/HCPCS: 87880 ==

== ENCOUNTER → 2021-06-29 10:08 | Outpatient (BNVA) | payer MEDICAID, SELFPAY | PROVIDERS: PCP Nurse Practitioner Family; Visit Provider Nurse Practitioner Women's Health | DX: Z87.59 Personal history of other complications of pregnancy, childbirth and the puerperium (principal); N92.6 Irregular menstruation, unspecified | CPT/HCPCS: 81025; 84702; 85027 ==

== ENCOUNTER → 2021-07-01 10:14 | Outpatient (BNVA) | payer MEDICAID, SELFPAY | PROVIDERS: PCP Nurse Practitioner Family; Visit Provider Obstetrics & Gynecology | DX: Z36.87 Encounter for antenatal screening for uncertain dates (principal); Z87.59 Personal history of other complications of pregnancy, childbirth and the puerperium | CPT/HCPCS: 76817 ==

== ENCOUNTER → 2021-07-26 08:22 | Outpatient (BNVA) | payer MEDICAID, SELFPAY | PROVIDERS: PCP Nurse Practitioner Family; Visit Provider Obstetrics & Gynecology | DX: Z34.80 Encounter for supervision of other normal pregnancy, unspecified trimester (principal) | CPT/HCPCS: 80307; 84315; 85027; 86592; 86762; 86803; 86850; 86900; 87086; 87340 ==

== ENCOUNTER → 2021-08-16 08:42 | Outpatient (BNVA) | payer MEDICAID, SELFPAY | PROVIDERS: PCP Nurse Practitioner Family; Visit Provider Obstetrics & Gynecology | DX: Z34.80 Encounter for supervision of other normal pregnancy, unspecified trimester (principal) | CPT/HCPCS: 81000; 87491; 87591; 88175 ==

== ENCOUNTER → 2021-09-05 13:34 | Outpatient (BNVA) | payer MEDICAID, SELFPAY | PROVIDERS: PCP Nurse Practitioner Family; Visit Provider Obstetrics & Gynecology | DX: Z34.92 Encounter for supervision of normal pregnancy, unspecified, second trimester (principal) | CPT/HCPCS: 81000 ==

== ENCOUNTER → 2021-10-03 09:43 | Outpatient (BNVA) | payer MEDICAID, SELFPAY | PROVIDERS: PCP Nurse Practitioner Family; Visit Provider Obstetrics & Gynecology | DX: Z36.87 Encounter for antenatal screening for uncertain dates (principal) | CPT/HCPCS: 76805 ==

== ENCOUNTER → 2021-10-28 15:01 | Outpatient (BNVA) | payer MEDICAID, SELFPAY | PROVIDERS: PCP Nurse Practitioner Family; Visit Provider Obstetrics & Gynecology | DX: Z36.87 Encounter for antenatal screening for uncertain dates (principal) | CPT/HCPCS: 76816 ==

== ENCOUNTER → 2021-11-01 09:07 | Outpatient (BNVA) | payer MEDICAID, SELFPAY | PROVIDERS: PCP Nurse Practitioner Family; Visit Provider Obstetrics & Gynecology | DX: Z34.92 Encounter for supervision of normal pregnancy, unspecified, second trimester (principal) | CPT/HCPCS: 81000; 82950 ==

== ENCOUNTER → 2021-11-28 14:40 | Outpatient (BNVA) | payer MEDICAID, SELFPAY | PROVIDERS: PCP Nurse Practitioner Family; Visit Provider Obstetrics & Gynecology | DX: Z34.90 Encounter for supervision of normal pregnancy, unspecified, unspecified trimester (principal) | CPT/HCPCS: 84315; 85027 ==

== ENCOUNTER → 2021-12-26 11:05 | Outpatient (BNVA) | payer MEDICAID, SELFPAY | PROVIDERS: PCP Nurse Practitioner Family; Visit Provider Obstetrics & Gynecology | DX: Z34.90 Encounter for supervision of normal pregnancy, unspecified, unspecified trimester (principal) | CPT/HCPCS: 83986; 84315 ==

== ENCOUNTER → 2022-01-12 15:30 | Outpatient (BNVA) | payer MEDICAID, SELFPAY | PROVIDERS: PCP Nurse Practitioner Family; Visit Provider Obstetrics & Gynecology | DX: O09.299 Supervision of pregnancy with other poor reproductive or obstetric history, unspecified trimester (principal); Z3A.00 Weeks of gestation of pregnancy not specified | CPT/HCPCS: 76816 ==

== ENCOUNTER → 2022-01-23 11:22 | Outpatient (BNVA) | payer MEDICAID, SELFPAY | PROVIDERS: PCP Nurse Practitioner Family; Visit Provider Obstetrics & Gynecology | DX: Z34.90 Encounter for supervision of normal pregnancy, unspecified, unspecified trimester (principal) | CPT/HCPCS: 84315; 87081; 87086 ==

== ENCOUNTER → 2022-02-06 16:00 | Outpatient (BNVA) | payer MEDICAID, SELFPAY | PROVIDERS: PCP Nurse Practitioner Family; Visit Provider Obstetrics & Gynecology | DX: Z34.93 Encounter for supervision of normal pregnancy, unspecified, third trimester (principal) | CPT/HCPCS: 81000; 87086 ==

== ENCOUNTER 2022-02-12 08:00 | Inpatient (IN) | payer MEDICAID, SELFPAY ==
[2022-02-12] VITALS (112 sets, daily range): BP systolic 106–146; BP diastolic 57–95; PULSE 85–150; RESP 18; TEMP 36.5–36.9; O2SAT 92–100; BMI 33.8
[2022-02-12 08:05] LABS: Basophils % 0.3 %; Eosinophils # 0.1 10^3/uL (0.0-0.8); Eosinophils % 1.1 %; Hematocrit 36.6 % (37.0-47.0); Hemoglobin 11.6 g/dL (11.5-15.3); Lymphocytes # 2.5 10^3/uL (0.8-4.8); Lymphocytes % 26.6 %; Mean Corpuscular HGB Conc 31.7 g/dL (30.0-36.0); Mean Corpuscular Hemoglobin 26.5 pg (28.0-34.0); Mean Corpuscular Volume 83.8 fl (81-99); Mean Platelet Volume 12.3 fL (7.4-10.4); Monocytes # 0.6 10^3/uL (0.2-0.9); Monocytes % 6.6 %; Neutrophils # 6.03 10^3/uL (1.8-7.7); Neutrophils % 64.9 %; Nucleated Red Blood Cells % 0 %; Platelet Count 200 10^3/cmm (130-400); Red Blood Count 4.37 10^6/uL (4.1-5.3); Red Cell Distribution Width 13.8 % (12.1-15.1); White Blood Count 9.3 10^3/uL (4.0-10.0)
[2022-02-12] MEDS: lactated ringers 1,000 ML 999 ML IV ×3 (08:45→16:09)
--- NOTE | 2022-02-12 09:26 | P.HP_ITS ---
Providers/Chief Complaint Admitting Physician: Bettie Esparza DO Primary FIELD ADMINISTRATIVE ASSISTANT: Dr. Leon Primary Care Provider: Meg Colmenares APN Chief Complaint: possible SROM HPI FIELD ADMINISTRATIVE ASSISTANT History of Present Illness Adeola Cai is a 26 year old female [id number] at 38wk IUP, [place] 02/20/2022 admitted with c/o SROM at 4am today. care with Dr. Leon with no complications. Hx of Macrosomia and shoulder dystocia last delivery. Iniatial exam cervix 4cm/80%/-2 now Nursing staff report Cx 6cm/90%/-1 Vtx, clear fluid. EFM- Cat 1 with Mild Ctxs q 4-5 . Present Details : 3 Para: 1 Date of Last Menstrual Period: 04/26/21 Calculated Date of Delivery: 01/31/22 Gestational Age Based on Last Menstrual Period: 41 Labs Rubella: Immune RPR: Negative GBS: Negative Review of Systems General: Reports: 10 or more systems reviewed and unremarkable except in HPI and below Medications/Allergies Home Medications Medication Instructions Recorded Confirmed Last Taken Type ferrous sulfate 325 mg (65 mg 325 mg PO BID 12/12/21 02/06/22 Unknown History iron) tablet prenat.vits,macario,ozu-[id number] 1 tab PO DAILY 12/12/21 02/06/22 Unknown History Allergies Allergy/AdvReac Type Severity Reaction Status Date / Time promethazine [From Phenergan] Allergy Intermediate confusion, Verified 02/06/22 15:39 loss of memory PFSH FIELD ADMINISTRATIVE ASSISTANT PFSH: Medical History (Updated 02/12/22 @ 09:42 by Bettie Esparza DO) Calculus of left ureter Large stone with high-grade obstruction and refractory pain. Treated with ESWL with excellent response History of ectopic (~2016) No pertinent past medical history neghx: htn,dm,thyroid,dvt/pe PCP: Paty Colmenares Surgical History (Updated 07/26/21 @ 08:58 by Enedina Troncoso RN) History of unilateral salpingectomy 03/25/2016-right, due to ruptured ectopic Status post extracorporeal shock wave therapy (~2020) Family History Mother Hypertension Family/Other Hypertension maternal aunt Heart disease Maternal side in general Grandmother Heart disease Maternal Denies family history of Colon cancer Ovarian cancer Hypercholesteremia Breast cancer Uterine cancer Thyroid disease Stroke Social History Smoking and tobacco status: never smoked History History History 3 Term 1 0 Miscarriages/Ectopic 1 Living Children 1 Care [place] Calculator Estimated Delivery Date Method Current WG Current Estimate 02/20/22 LMP (Certain) 38w 6d Vitals/I&O/Wt Last Vital Signs Pulse 118 H 02/12/22 08:02 BP 128/84 02/12/22 07:14 Pulse Ox 97 02/12/22 08:02 O2 Del Method 02/12/22 07:37 Weight last 48 hrs Weight 83.915 kg Physical Exam Narrative: 26yo C. female A/O x 3 NAD. HENMT: HEAD & SCALP: normal to inspection and normocephalic MOUTH: Normal oral and palatal mucosa present Chest: COMMONS NORMALS: normal inspection of the chest Resp: COMMON NORMALS: normal respiratory effort and clear to auscultation bi laterally Cardio: COMMON NORMALS: regular rate, regular rhythm and No murmurs present (Cardio) Extremity: COMMON NORMALS: normal to inspection, no calf tenderness and no pedal edema Neuro: COMMON NORMALS: patient oriented x3, CN's II-XII intact bilaterally, moves all extremities and deep tendon reflexes 2+ bilaterally Psych: COMMON NORMALS: mental status grossly normal, Normal thought process present, cooperative, normal affect, speech normal and activity/motor behavior normal Skin: COMMON NORMALS: no rashes or lesions noted and turgor normal Data 02/12/22 07:30 A&P Assessment and plan (1) 38 weeks gestation of : (2) SROM (spontaneous rupture of membranes): (3) History of macrosomia in infant in prior , currently : Plan 1. Admit to LD for Management of Labor 2. Discussed plan with pt, and reviewed shoulder dystocia and procedures for delivery if encountered. Attestations Medical Necessity Statement*: Admit for Labor Management. Coding Level of Care Code Acute Real Estate Sales Agent for g Fwd Diagnoses 38 weeks gestation of Z3A.38 SROM (spontaneous rupture of membranes) History of macrosomia in in prior , currently O09.299
--- NOTE | 2022-02-12 09:57 | ANES.PREANE2 ---
Pre-Anesthetic Assessment Height/Weight: Height 1.57 m Weight 83.915 kg Pulse BP Pulse Ox O2 Del Method 93 122/77 100 02/12/22 09:52 02/12/22 09:52 02/12/22 09:51 02/12/22 07:37 Preop Diagnosis: Left proximal ureteral stone with refractory renal colic Epidural Familial anesthetic complications: None Was Beta Slick taken within 24 hours: N/A Was Clonidine taken within 24 hours: N/A Social No alcohol and No tobacco Exam alert, oriented x 3, clear to auscultation bilaterally and regular rate & rhythm Airway Mallampati: Class II Dentition: full Anesthetic Plan ASA status: 2 Anesthesia: Regional (specify below) Other: epidural Risk of > 500 ml blood loss (7ml/kg in children): Yes, adequate IV access and fluids planned Medications/Allergies Home Medications Medication Instructions Recorded Confirmed Last Taken Type ferrous sulfate 325 mg (65 mg 325 mg PO BID 12/12/21 02/06/22 Unknown History iron) tablet prenat.vits,macario,[id number] 1 tab PO DAILY 12/12/21 02/06/22 Unknown History Allergies Allergy/AdvReac Type Severity Reaction Status Date / Time promethazine [From Phenergan] Allergy Intermediate confusion, Verified 02/06/22 15:39 loss of memory Current Medications Generic Name Dose Route Start Last Admin Trade Name Freq PRN Reason Stop Dose Admin Lactated Ringer's 1,000 mls @ 999 mls/hr 02/12/22 09:15 02/12/22 08:45 Lactated Ringers IV 999 mls/hr .Q1H1M PRN Administration See label comments PFSH Anesthesia Medical History (Updated 02/12/22 @ 09:42 by Bettie Esparza DO) Calculus of left ureter Large stone with high-grade obstruction and refractory pain. Treated with ESWL with excellent response History of ectopic (~2016) No pertinent past medical history neghx: htn,dm,thyroid,dvt/pe PCP: Paty Colmenares Surgical History (Updated 07/26/21 @ 08:58 by Enedina Troncoso RN) History of unilateral salpingectomy 03/25/2016-right, due to ruptured ectopic Status post extracorporeal shock wave therapy (~2020) Family History Mother Hypertension Family/Other Hypertension maternal aunt Heart disease Maternal side in general Grandmother Heart disease Maternal Denies family history of Colon cancer Ovarian cancer Hypercholesteremia Breast cancer Uterine cancer Thyroid disease Stroke Social History Smoking and tobacco status: never smoked Female Reproductive History Date of last menstrual period: 04/26/21 : 3 Data Anesthesia 02/12/22 07:30 Short CBC 02/12/22 Range/Units 07:30 WBC 9.3 (4.0-10.0) 10^3/uL Hgb 11.6 (11.5-15.3) g/dL Hct 36.6 L (37.0-47.0) % MCV 83.8 (81-99) fl Plt Count 200 (130-400) 10^3/cmm Neut % (Auto) 64.9 % Neut # (Auto) 6.03 (1.8-7.7) 10^3/uL Cardiac Studies: No Data to Display Anesthesia Procedures Epidural Time Out Performed: Yes Consents Signed: Procedure Consent and NPO Consent Consent: requested by attending/covering physician, from patient, from other, risks and benefits reviewed and patient agrees to proceed Lumbar Level: L3-L4 Epidural position: sitting Epidural procedure: sterile prep of area, 1% lidocaine to numb the area, 18 g needle, negative for paresthesia passed, neg for paresthesia, test dose given, 1.5% xylocaine 1:200k epi (5 cc), 0.2% Ropivacaine bolus ml (5), placed PCEA, no systemic response, sterile dressing applied, L.U.D. no apparent complications and 0.2% Ropiavacaine @ mls/hr (13) Additional Comments: JAYE at 7 cm, threaded to 13 cm. Patient reported tingling toes and decreased pain of subsequent 2 contractions
--- NOTE | 2022-02-12 11:34 | ANES.PROC ---
Anesthesia Procedures Procedure/Date: 02/12/22 Epidural: Time Out Performed: Yes Consents Signed: Procedure Consent, NPO Consent and No Consent Needed Consent: from patient, risks and benefits reviewed and patient agrees to proceed Lumbar Level: L3-L4 Epidural position: sitting Epidural procedure: sterile prep of area, 1% lidocaine to numb the area, 18 g needle, negative for paresthesia passed, neg for paresthesia, test dose given, 1.5% xylocaine 1:200k epi (5), placed PCEA, no systemic response, sterile dressing applied, L.U.D. no apparent complications and 0.2% Ropiavacaine @ mls/hr (13) Additional Comments: Improved RLQ pain pattern after replacement
--- NOTE | 2022-02-12 11:35 | PM.MISC ---
Miscellaneous Note Purpose of Documentation: Pain Note: Patient having resistant RLQ pain. Interventions attempted before my exam included, bolusing the epidural and Right Lateral Decubitus positioning. I administered lidocaine 1% 5 cc followed by another 5 cc bolus from pump, with no improvement in RLQ pain. Discussed options with patient including continuing with current epidural or replacing it. Patient elected to replace epidural. Upon removal of epidural catheter, catheter tip was indeed noted to be significantly kinked to one side.
[2022-02-12] MEDS: oxytocin 30 UNIT/500 ML BAG IV (11:51)
--- NOTE | 2022-02-12 13:14 | PM.DELIVERY ---
Delivery Note: Date of delivery: February 12, 2022 Pre-delivery diagnoses: 1. S/P Viable Male 8#7 2. 38wk IUP 3. SROM 4. Hx of Macrosomia 5. Hx of Shoulder Dystocia Post-delivery diagnoses: S/P Procedure: viable male Op report anesthesia: Other (Epidural) Delivering Physician: Isaias ORTIZ Estimated blood loss (mL): 400 Findings: Normal male Delivery: 26yo C. female ,at 38 wk IUP began pushing at complete/+1. Delivered the Vtx OA presentation, NC x 1 easily reduced, Anterior followed by posterior shoulders and remainder of body delivered with no problems.Viable 8#7 male, 8/9. Oral and nasal bulb suctioning, with spontaneous cry. Delayed cord clamping, cord cut and baby placed on Mothers Abdomen for bonding. pH drawn and handed off. 3v cord noted, Uterus messaged and placenta spontaneously delivered Esteves presentation. Uterus firm, vaginal vault explored with 2nd degree laceration noted. Repair with good approximation using 3 Vicryl. Needle and sponge count correct. Mother and Infant stable. Post-Delivery Status: stable History History History 3 Term 1 0 Miscarriages/Ectopic 1 Living Children 1 Other History: 1--->03/25/16, ectopic at 8wks gestation, treated with laparoscopic right salpingectomy Performed by Dr. Leon at [facility] in [place], [place]. 2---> 10/09/2018, boy, Sammy, vaginal delivery, epidural, 40 3/7, 10# 6oz, per Dr. Leon at [facility] 3--> current A&P Assessment and plan (1) (spontaneous vaginal delivery): Plan A. S/P - male P. care. Coding Level of Care Code Acute Clinical Staff Rn for Chg Fwd Diagnoses (spontaneous vaginal delivery) O80
[2022-02-12] MEDS: benzocaine-menthol 78 gm Canister 1 SPRAY TOPICAL (16:10)
[2022-02-12] MEDS: lanolin oint 7 gm 1 APPLIC TOPICAL (16:10)
--- NOTE | 2022-02-12 17:04 | PC.NURSE ---
500mL bolus of LR given due to patient complaining of dizziness and lightheadedness while ambulating to the toilet. Patient stated her heart was beating fast. Patient rolled back to the bed set of vitals done with pulse rate in the 120s-140s. Fluid bolus given patient states she feel better, pulse rate hovering in the 110s - 120s. Will continue to monitor.
[2022-02-12] MEDS: docusate sodium 100 mg Capsule PO (21:08)
[2022-02-12] MEDS: ibuprofen 800 mg tablet PO (21:08)
[2022-02-13 02:50] VITALS: BP 104/69; PULSE 91; TEMP 36.7; O2SAT 98
[2022-02-13 04:15] LABS: Hematocrit 28.2 % (37.0-47.0); Hemoglobin 8.8 g/dL (11.5-15.3); Mean Corpuscular HGB Conc 31.2 g/dL (30.0-36.0); Mean Corpuscular Hemoglobin 26.4 pg (28.0-34.0); Mean Corpuscular Volume 84.7 fl (81-99); Mean Platelet Volume 10.8 fL (7.4-10.4); Platelet Count 146 10^3/cmm (130-400); Red Blood Count 3.33 10^6/uL (4.1-5.3); Red Cell Distribution Width 13.9 % (12.1-15.1)
[2022-02-13 10:00] VITALS: BP 118/78; TEMP 36.8
[2022-02-13] MEDS: docusate sodium 100 mg Capsule PO (10:01)
[2022-02-13] MEDS: prenatal vitamin Capsule 1 CAP PO (10:01)
[2022-02-13] MEDS: ibuprofen 800 mg tablet PO ×2 (10:01→15:58)
--- NOTE | 2022-02-13 10:21 | ANE.PACU2 ---
Inpatient post-anesthesia follow up: Airway intact: Yes Vital signs: Temperature 98.0 F Pulse Rate 91 Respiratory Rate 18 Blood Pressure 104/69 Pulse Oximetry 98 Oxygen Delivery Me thod Room Air Oxygen Flow Rate Fraction of Inspir ed Oxygen Hydration adequate: Yes Nausea and vomiting: No Pain level: 2 Mental status: Baseline
--- NOTE | 2022-02-13 10:57 | P.DS_ITS ---
Discharge Providers CHURN DRILL OPERATOR Date of Admission: 02/12/22 08:00 Date of Discharge: 02/13/22 Attending Provider at Admission: Bettie Esparza DO Attending Provider at Discharge: Bettie Esparza DO Primary Care Provider: Meg Colmenares APN Diagnoses at Discharge Discharge Diagnosis (1) (spontaneous vaginal delivery): Status: Acute Reason for Visit Reason for Visit: possible SROM Hospital Course Hospital Course 26yo C. female delivered a viable male via with 2nd degree laceration on 02/12/22 after admission for SROM in early labor. Labor progressed with Augmentation with Pitocin. course uneventful. Pt is ambulating without HAs or visual changes, tolerating regular diet. Pt is . Discharge expectations reviewed, pt has Vitamins and Iron at home. Reviewed Tylenol and Ibuprofen for pain if needed. Nursing staff present coaching and assisting for infant to latch on for breast feeding. Information Peripartum Data: Delivery Method: Vaginal Laceration description: Perineal - 2nd Degree Physical Exam GI: COMMON NORMALS: Normal to inspection, nondistended, normoactive bowel sounds present and Soft to palpation PALPATION: Yes Soft to palpation : COMMON NORMALS: Yes no CVA tenderness BLADDER/KIDNEY EXAM: Yes no CVA tenderness Back/Pelvis: COMMON NORMALS: no CVA tenderness Extremity: COMMON NORMALS: normal to inspection, no calf tenderness and no pedal edema Urinary Catheter Management: Naylor: Cath Placed During This Visit: yes, but has since been removed by the nurse Reason for Continuing Indwelling Catheter: Does Not Meet Criteria Urinary Catheter Date of Insertion: 02/12/22 Urinary Catheter Time of Insertion: 10:40 Date Urinary Catheter Removed: 02/12/22 Time Urinary Catheter Discontinued: 12:45 History History History 3 Term 1 0 Miscarriages/Ectopic 1 Living Children 1 Other History: 1--->03/25/16, ectopic at 8wks gestation, treated with laparoscopic right salpingectomy Performed by Dr. Leon at [facility] in [place], [place]. 2---> 10/09/2018, boy, Sammy, vaginal delivery, epidural, 40 3/7, 10# 6oz, per Dr. Leon at [facility] 3--> current Discharge Data Studies Completed and Pending Laboratory Results WBC 9.0 10^3/uL (4.0-10.0) 02/13/22 04:00 RBC 3.33 10^6/uL (4.1-5.3) L 02/13/22 04:00 Hgb 8.8 g/dL (11.5-15.3) L 02/13/22 04:00 Hct 28.2 % (37.0-47.0) L 02/13/22 04:00 MCV 84.7 fl (81-99) 02/13/22 04:00 MCH 26.4 pg (28.0-34.0) L 02/13/22 04:00 MCHC 31.2 g/dL (30.0-36.0) 02/13/22 04:00 RDW 13.9 % (12.1-15.1) 02/13/22 04:00 Plt Count 146 10^3/cmm (130-400) 02/13/22 04:00 MPV 10.8 fL (7.4-10.4) H 02/13/22 04:00 Neut % (Auto) 64.9 % 02/12/22 07:30 Lymph % (Auto) 26.6 % 02/12/22 07:30 Edmunds % (Auto) 6.6 % 02/12/22 07:30 Eos % (Auto) 1.1 % 02/12/22 07:30 Baso % (Auto) 0.3 % 02/12/22 07:30 Neut # (Auto) 6.03 10^3/uL (1.8-7.7) 02/12/22 07:30 Lymph # (Auto) 2.5 10^3/uL (0.8-4.8) 02/12/22 07:30 Edmunds # (Auto) 0.6 10^3/uL (0.2-0.9) 02/12/22 07:30 Eos # (Auto) 0.1 10^3/uL (0.0-0.8) 02/12/22 07:30 Baso # (Auto) 0.0 10^3/uL (0.0-0.1) 02/12/22 07:30 Nucleated RBC % (auto) 0 % 02/12/22 07:30 Nucleated RBCs # 0.0 /100WBC 02/12/22 07:30 Procedures Performed Vitals Last Vital Signs Temp 98.0 F 02/13/22 02:50 Pulse 91 02/13/22 02:50 Resp 18 02/12/22 18:30 BP 104/69 02/13/22 02:50 Pulse Ox 98 02/13/22 02:50 O2 Del Method 02/13/22 02:50 Discharge Plan Discharge Patient Disposition: Home Condition: Stable Prescriptions: Continued prenat.vits,macario,[id number] Tablet 1 tab PO DAILY ferrous sulfate 325 mg (65 mg iron) tablet 325 mg PO BID Discharge Orders: Discharge Order (Routine); Ordered 02/13/22 Ordered By: Bettie Esparza Patient Instructions: Opioid Safety Discharge Attestations CHURN DRILL OPERATOR Time Spent in Discharge Care*: less than 30 min Coding Level of Care Code Acute Box Folding Machine Operator for Chg Fwd Exam Expanded Problem Focused Diagnoses (spontaneous vaginal delivery) O80
[2022-02-13 16:11] VITALS: BP 107/74; TEMP 36.7
[2022-02-13 18:31] VITALS: BP 114/78; TEMP 36.7
[2022-02-13 18:32] VITALS: BP 114/78; PULSE 111; RESP 15; TEMP 36.7
== END 2022-02-13 18:32 | disposition home or self-care (01) | DRG 807 ==
LOC: OPOB 02-13 09:01 → OBGYN 02-13 09:02
PROVIDERS: Admitting Provider Obstetrics & Gynecology; PCP Nurse Practitioner Family; Visit Provider Obstetrics & Gynecology
DX: O42.02 Full-term premature rupture of membranes, onset of labor within 24 hours of rupture (principal); Z37.0 Single live birth; O69.81X0 Labor and delivery complicated by cord around neck, without compression, not applicable or unspecified; O70.1 Second degree perineal laceration during delivery; Z3A.38 38 weeks gestation of pregnancy
CPT/HCPCS: 12345; 36415; 51702; 59025; 59409; 83986; 85025; 85027; 98960; 99211; J2590; J2795; J7120

== ENCOUNTER → 2023-07-02 14:44 | Outpatient (BNVA) | payer MEDICAID, SELFPAY | PROVIDERS: PCP Nurse Practitioner Family; Visit Provider Obstetrics & Gynecology | DX: R53.83 Other fatigue (principal); Z01.419 Encounter for gynecological examination (general) (routine) without abnormal findings | CPT/HCPCS: 84443; 85025 ==

== ENCOUNTER → 2024-02-08 13:08 | Outpatient (BNVA) | payer MEDICAID, SELFPAY | PROVIDERS: PCP Nurse Practitioner Family; Visit Provider Nurse Practitioner Women's Health | DX: N92.6 Irregular menstruation, unspecified (principal); Z87.59 Personal history of other complications of pregnancy, childbirth and the puerperium | CPT/HCPCS: 81025 ==

== ENCOUNTER → 2024-02-11 08:33 | Outpatient (BNVA) | payer MEDICAID, SELFPAY | PROVIDERS: PCP Nurse Practitioner Family; Visit Provider Nurse Practitioner Women's Health | DX: Z34.90 Encounter for supervision of normal pregnancy, unspecified, unspecified trimester (principal) | CPT/HCPCS: 76801 ==

== ENCOUNTER → 2024-02-18 10:20 | Outpatient (BNVA) | payer MEDICAID, SELFPAY | PROVIDERS: PCP Nurse Practitioner Family; Visit Provider Nurse Practitioner Women's Health | DX: Z34.91 Encounter for supervision of normal pregnancy, unspecified, first trimester (principal) | CPT/HCPCS: 80307; 84315; 84443; 85025; 86592; 86762; 86803; 86850; 86900; 87086; 87340; 87491; 87591; 87661; 87806 ==

== ENCOUNTER → 2024-03-17 13:59 | Outpatient (BNVA) | payer MEDICAID, SELFPAY | PROVIDERS: PCP Nurse Practitioner Family; Visit Provider Obstetrics & Gynecology | DX: Z34.80 Encounter for supervision of other normal pregnancy, unspecified trimester (principal) | CPT/HCPCS: 84315 ==

== ENCOUNTER → 2024-04-11 07:55 | Outpatient (BNVA) | payer MEDICAID, SELFPAY | PROVIDERS: PCP Nurse Practitioner Family; Visit Provider Nurse Practitioner Women's Health | DX: Z34.80 Encounter for supervision of other normal pregnancy, unspecified trimester (principal) | CPT/HCPCS: 84315; 87491; 87591; 87624; 87661 ==

== ENCOUNTER → 2024-04-14 08:57 | Outpatient (BNVA) | payer MEDICAID, SELFPAY | PROVIDERS: PCP Nurse Practitioner Family; Visit Provider Nurse Practitioner Women's Health | DX: Z34.80 Encounter for supervision of other normal pregnancy, unspecified trimester (principal) | CPT/HCPCS: 82105; 82950 ==

== ENCOUNTER → 2024-04-18 07:55 | Outpatient (BNVA) | payer MEDICAID, SELFPAY | PROVIDERS: PCP Nurse Practitioner Family; Visit Provider Nurse Practitioner Women's Health | DX: Z87.59 Personal history of other complications of pregnancy, childbirth and the puerperium (principal) | CPT/HCPCS: 82951; 82952 ==

== ENCOUNTER → 2024-04-28 14:18 | Outpatient (BNVA) | payer MEDICAID, SELFPAY | PROVIDERS: PCP Nurse Practitioner Family; Visit Provider Obstetrics & Gynecology | DX: Z34.92 Encounter for supervision of normal pregnancy, unspecified, second trimester (principal) | CPT/HCPCS: 76805 ==

== ENCOUNTER → 2024-05-26 10:42 | Outpatient (BNVA) | payer MEDICAID, SELFPAY | PROVIDERS: PCP Nurse Practitioner Family; Visit Provider Obstetrics & Gynecology | DX: Z36.9 Encounter for antenatal screening, unspecified (principal) | CPT/HCPCS: 76816; 84315 ==

== ENCOUNTER → 2024-06-19 08:55 | Outpatient (BNVA) | payer MEDICAID, SELFPAY | PROVIDERS: PCP Nurse Practitioner Family; Visit Provider Nurse Practitioner Women's Health | DX: Z34.80 Encounter for supervision of other normal pregnancy, unspecified trimester (principal) | CPT/HCPCS: 82950; 84315; 85025 ==

== ENCOUNTER → 2024-06-27 07:55 | Outpatient (BNVA) | payer MEDICAID, SELFPAY | PROVIDERS: PCP Nurse Practitioner Family; Visit Provider Nurse Practitioner Women's Health | DX: Z34.80 Encounter for supervision of other normal pregnancy, unspecified trimester (principal); Z87.59 Personal history of other complications of pregnancy, childbirth and the puerperium | CPT/HCPCS: 82951; 82952 ==

== ENCOUNTER → 2024-07-04 08:14 | Outpatient (BNVA) | payer MEDICAID, SELFPAY | PROVIDERS: PCP Nurse Practitioner Family; Visit Provider Nurse Practitioner Women's Health | DX: Z87.59 Personal history of other complications of pregnancy, childbirth and the puerperium (principal); Z34.80 Encounter for supervision of other normal pregnancy, unspecified trimester | CPT/HCPCS: 84315 ==

== ENCOUNTER → 2024-07-16 07:52 | Outpatient (BNVA) | payer MEDICAID, SELFPAY | PROVIDERS: PCP Nurse Practitioner Family; Visit Provider Nurse Practitioner Women's Health | DX: O24.410 Gestational diabetes mellitus in pregnancy, diet controlled (principal); Z87.59 Personal history of other complications of pregnancy, childbirth and the puerperium | CPT/HCPCS: 84315 ==

== ENCOUNTER → 2024-07-22 08:33 | Outpatient (BNVA) | payer MEDICAID, SELFPAY | PROVIDERS: PCP Nurse Practitioner Family; Visit Provider Nurse Practitioner Women's Health | DX: Z36.9 Encounter for antenatal screening, unspecified (principal) | CPT/HCPCS: 76816; 76819 ==

== ENCOUNTER 2024-07-22 09:48 | Outpatient (CLI) | payer MEDICAID, SELFPAY ==
[2024-07-22 09:42] VITALS: BMI 33.7
[2024-07-22 09:59] VITALS: BP 119/74; PULSE 89
[2024-07-22 10:02] VITALS: RESP 17
[2024-07-22 10:14] VITALS: BP 111/70; PULSE 91
[2024-07-22 10:29] VITALS: BP 112/72; PULSE 97
[2024-07-22 10:34] VITALS: BP 112/72; PULSE 97; RESP 17; O2SAT 98
== END 2024-07-22 10:34 | disposition home or self-care (01) ==
LOC: OPOB 09:48 → OBGYN 09:49
PROVIDERS: PCP Nurse Practitioner Family; Visit Provider Obstetrics & Gynecology
DX: O24.419 Gestational diabetes mellitus in pregnancy, unspecified control (principal); Z3A.00 Weeks of gestation of pregnancy not specified
CPT/HCPCS: 59025; 99211

== ENCOUNTER → 2024-07-30 07:52 | Outpatient (BNVA) | payer MEDICAID, SELFPAY | PROVIDERS: PCP Nurse Practitioner Family; Visit Provider Nurse Practitioner Women's Health | DX: Z34.80 Encounter for supervision of other normal pregnancy, unspecified trimester (principal) | CPT/HCPCS: 76819 ==

== ENCOUNTER → 2024-08-01 14:00 | Outpatient (BNVA) | payer MEDICAID, SELFPAY | PROVIDERS: PCP Nurse Practitioner Family; Visit Provider Nurse Practitioner Women's Health | DX: O24.410 Gestational diabetes mellitus in pregnancy, diet controlled (principal) | CPT/HCPCS: 84315 ==

== ENCOUNTER → 2024-08-04 12:57 | Outpatient (BNVA) | payer MEDICAID, SELFPAY | PROVIDERS: PCP Nurse Practitioner Family; Visit Provider Nurse Practitioner Women's Health | DX: O24.419 Gestational diabetes mellitus in pregnancy, unspecified control (principal); O99.019 Anemia complicating pregnancy, unspecified trimester; Z3A.00 Weeks of gestation of pregnancy not specified | CPT/HCPCS: 76819 ==

== ENCOUNTER → 2024-08-13 08:02 | Outpatient (BNVA) | payer MEDICAID, SELFPAY | PROVIDERS: PCP Nurse Practitioner Family; Visit Provider Nurse Practitioner Women's Health | DX: O24.410 Gestational diabetes mellitus in pregnancy, diet controlled (principal) | CPT/HCPCS: 76819 ==

== ENCOUNTER → 2024-08-15 08:02 | Outpatient (BNVA) | payer MEDICAID, SELFPAY | PROVIDERS: PCP Nurse Practitioner Family; Visit Provider Nurse Practitioner Women's Health | DX: O24.410 Gestational diabetes mellitus in pregnancy, diet controlled (principal) | CPT/HCPCS: 84315; 85025; 87081 ==

== ENCOUNTER 2024-08-18 11:51 | Outpatient (CLI) | payer MEDICAID, SELFPAY ==
--- NOTE | 2024-08-18 11:59 | USR_ITS ---
PROCEDURE INFORMATION: Exam: US , Follow up Exam date and time: 08/18/2024 12:07 PM Age: 29 years old Clinical indication: Screening exam; Routine US, uterus; Additional info: Personal HX of other complications of LABS AND CLINICAL REPORTS: Gestational age (Established): 36 w 3 d Estimated due date (Established): 09/12/2024 TECHNIQUE: Imaging protocol: Transabdominal ultrasound of the uterus, real time with image documentation. Follow-up (eg, re-evaluation of size by measuring standard growth parameters and amniotic fluid volume, re-evaluation of organ system(s) suspected or confirmed to be abnormal on a previous scan). COMPARISON: 1. US OB BPP wo NST [id number] 08/13/2024 8:07 AM 2. US OB F/U w BPP wo NST 07/22/2024 8:44 AM FINDINGS: Gestation: Single intrauterine gestation. heart rate: 147 bpm. presentation and position: Cephalic presentation. Placenta: Grade 1 anterior fundal placenta. Amniotic fluid index: 12 cm (normal) stomach: There is fluid in the stomach. BIOMETRY: Gestational age (AUA): 36 weeks 3 days Estimated due date (AUA): 09/09/2024 by current ultrasound (09/12/2024 by established dates and 09/12/2024 by prior ultrasound). Estimated weight: 3014 g. EFW by AC, BPD, FL, HC, Hadlock 1985 Biparietal diameter (BPD): 9.26 cm. EGA (BPD) is 37 w 4 d. 88 % percentile Head circumference (HC): 32.29 cm. EGA (HC) is 36 w 3 d. 22.9 % percentile Abdominal circumference (AC): 32.8 cm. EGA (AC) is 36 w 5 d. 69.8 % percentile Femur length (FL): 7.11 cm. EGA (FL) is 36 w 3 d. 47 % percentile HC/AC: 0.98. (Normal range: 0.92 - 1.05) FL/HC: 22.02. (Normal range: 20.7 - 22.53) FL/BPD: 76.78. (Normal range: 71 - 87) FL/AC: 21.68. (Normal range: 20 - 24) MATERNAL: Cervix: Cervix is obscured by the head. US/[place] [id number] IMPRESSION: 1. Estimated gestational age is 36 weeks 3 days by current ultrasound for THEODORE of 09/09/2024 (09/12/2024 by established dates and 09/12/2024 by prior ultrasound). There has been appropriate interval growth since the prior ultrasound. 2. Estimated weight is 3014 g (62nd percentile).
== END 2024-08-18 11:52 | disposition home or self-care (01) ==
PROVIDERS: PCP Nurse Practitioner Family; Visit Provider Nurse Practitioner Women's Health
DX: Z87.59 Personal history of other complications of pregnancy, childbirth and the puerperium (principal)
CPT/HCPCS: 76816

== ENCOUNTER → 2024-08-25 09:47 | Outpatient (BNVA) | payer MEDICAID, SELFPAY | PROVIDERS: PCP Nurse Practitioner Family; Visit Provider Obstetrics & Gynecology | DX: Z34.80 Encounter for supervision of other normal pregnancy, unspecified trimester (principal) | CPT/HCPCS: 84315 ==

== ENCOUNTER → 2024-09-01 11:02 | Outpatient (BNVA) | payer MEDICAID, SELFPAY | PROVIDERS: PCP Nurse Practitioner Family; Visit Provider Obstetrics & Gynecology | DX: O24.410 Gestational diabetes mellitus in pregnancy, diet controlled (principal) | CPT/HCPCS: 84315 ==

== ENCOUNTER 2024-09-03 08:34 | Inpatient (IN) | payer MEDICAID, SELFPAY ==
[2024-09-03] VITALS (71 sets, daily range): BP systolic 108–178; BP diastolic 66–93; PULSE 78–123; RESP 16; TEMP 35.8–36.1; O2SAT 98–100; BMI 35.3
--- NOTE | 2024-09-03 08:50 | PM.OBGYHP ---
Providers/Chief Complaint Admitting Physician: Vega Armando MD Primary HIDE CLEANER: Vega Armando MD Primary Care Provider: Meg Colmenares APN Chief Complaint: IOL, gestational diabetes HPI HIDE CLEANER History of Present Illness Adeola Cai is a 29 year old female Ec1 EDC September 12, 2024 at 38 w 5 d complicated by GDM, controlled with diet however, patient has not been compliant with diet and has not brought in accucheck records now admitted for induction of labor no c/o + active movements Present Details : 4 Para: 2 Labs Rubella: Immune RPR: Negative GBS: Negative Medications/Allergies Home Medications ?Medication ?Instructions ?Recorded ?Confirmed ?Last Taken ?Type PNV 153-FA 400 mcg-om3 35 mg-dha 1 tab PO DAILY 02/08/24 09/03/24 Unknown History 25 mg-epa 5 mg-fish oil chew tablet ( Gummies) blood-glucose meter (Blood Glucose #1 ea 06/30/24 09/01/24 Unknown Rx Monitoring kit) blood-glucose sensor (Dexcom G6 #3 ea 07/16/24 09/01/24 Unknown Rx Sensor device) blood-glucose transmitter (Dexcom #1 ea 07/16/24 09/01/24 Unknown Rx G6 Transmitter device) blood-glucose,train announcer,cont #1 ea 07/16/24 09/01/24 Unknown Rx (Dexcom G6 Sports Physician) blood sugar diagnostic (Accu-Chek #100 ea 07/25/24 09/01/24 Unknown Rx Guide test strips) lancets 33 gauge (TRUEplus Lancets) #100 ea 07/29/24 09/01/24 Unknown Rx ferrous sulfate 325 mg (65 mg 325 mg PO DAILY #30 tabs 08/19/24 09/03/24 Unknown Rx iron) tablet Allergies Allergy/AdvReac Type Severity Reaction Status Date / Time promethazine (From Phenergan) Allergy Intermediate confusion, Verified 09/01/24 08:02 loss of memory PFSH HIDE CLEANER PFSH: Medical History Insomnia No pertinent past medical history neghx: htn,dm,thyroid,dvt/pe PCP: [facility] History of ectopic (~2016) Calculus of left ureter Large stone with high-grade obstruction and refractory pain. Treated with ESWL with excellent response Surgical History Status post extracorporeal shock wave therapy (~2020) History of unilateral salpingectomy 03/25/2016-right, due to ruptured ectopic Family History Mother Hypertension Family/Other Hypertension maternal aunt Heart disease Maternal side in general Grandmother Heart disease Maternal Denies family history of Colon cancer Ovarian cancer Hypercholesteremia Breast cancer Uterine cancer Thyroid disease Stroke Social History Smoking and tobacco/nicotine status: never used tobacco/nicotine Personal Safety: Do you feel safe at home: Yes Victim of physical abuse: No Victim of emotional abuse: No Victim of sexual abuse: No Would you like help information on resources?: No History History History 4 Term 2 0 Miscarriages/Ectopic 1 Living Children 2 Care THEODORE Calculator Estimated Delivery Date Method Current WG Current Estimate 09/12/24 LMP (Certain) 38w 6d Other Estimates 09/17/24 Ultrasound #1 38w 1d Specific Issues/Plans ANEMIA-hemoglobin 10.4; start iron daily---> REPEAT AT 36 WEEKS GESTATIONAL DIABETES: Dx at 29 weeks, diet controlled HX OF MACROSOMIA HX OF SHOULD DYSTOCIA: second delivery, baby weigh 10lb 6oz, denies GDM NAUSEA AND VOMITING IN : reglan sent to pharmacy GERD: reports frequent heartburn and acid reflux, discussed OTC pepcid and TUMS TACHYCARDIA: discussed that this can be a normal variance during , but to keep reporting episodes to us and when to be evaluated PELVIC PRESSURE/PAIN: discussed hip and pelvic pain in third trimester, use of belly bands, and when to go to OB to be evaluated. Vitals/I&O/Wt Last Vital Signs Temp 97.9 F 09/04/24 00:15 Pulse 91 09/04/24 02:15 Resp 16 09/04/24 02:15 BP 124/83 09/04/24 02:15 Pulse Ox 97 09/04/24 02:15 O2 Del Method Room Air 09/04/24 02:15 09/03/24 09/03/24 09/04/24 14:59 22:59 06:59 Intake Total 189.167 / 969.337 7563.00 / 3219.167 959.833 / 4179.000 Balance 189.167 / 766.325 3006.00 / 3219.167 959.833 / 4179.000 Weight last 48 hrs Weight 193 lb Physical Exam Narrative: VS normal general comfortable, awake, alert Lungs: clear Cor: RRR Abd: nontender. FH 38 cm, cephalic cervix: 1 cm / 25% / -4 / posterior External monitor: heart tracing good variability, + accelerations Urinary Catheter Management: Naylor Latex: Cath Placed During This Visit: yes, but has since been removed by the nurse Reason for Continuing Indwelling Catheter: Decision to DC Catheter Urinary Catheter Date of Insertion: 09/03/24 Urinary Catheter Time of Insertion: 17:00 Date Urinary Catheter Removed: 09/03/24 Time Urinary Catheter Discontinued: 20:18 Data 09/03/24 08:05 Results Labs OB ([facility]): Obstetrics US 08/18/24 Obstetrics US/Biophysical Profile 08/13/24 Blood Type AB Positive 09/03/24 Antibody Screen Negative 09/03/24 Hct, (36-47) 32.2 % L 09/03/24 Hgb, (11.27-16.99) 10.00 g/dL L 09/03/24 Rho(D) Type Rh positive 09/03/24 Plt Count, (157-399) 152 10^3/cmm L 09/03/24 Hep Bs Antigen, (Nonreactive) Non-reactive 02/18/24 Hepatitis C Antibody, (Nonreactive) Non-reactive 02/18/24 Rubella IgG Antibody, (0.0-10.0) 48.0 IU/mL H 02/18/24 RPR, (Nonreactive) Nonreactive 02/18/24 HIV 1&2 Ab & HIV 1 Ag, (Non-Reactiv) Non-reactive 02/18/24 TSH, (0.27-4.20) 1.63 uIU/mL 02/18/24 Glucose 1 Hr 50 gm, (85-140) 148 mg/dL H 06/19/24 Gest Glucose Tolerance mg/dL 06/27/24 HCG, Qual, (Negative) Positive H 02/08/24 Urine Opiates Screen, (Negative) Negative ng/mL 02/18/24 Ur Barbiturates Screen, (Negative) Negative ng/mL 02/18/24 Ur Phencyclidine Scrn, (Negative) Negative ng/mL 02/18/24 Ur Amphetamines Screen, (Negative) Negative ng/mL 02/18/24 U Benzodiazepines Scrn, (Negative) Negative ng/mL 02/18/24 Urine Cocaine Screen, (Negative) Negative ng/mL 02/18/24 U Marijuana (THC) Screen, (Negative) Negative ng/mL 02/18/24 Micro Urine Specimen 02/18/24 Pap Smear Interpret See note 04/11/24 A&P Assessment and plan 1. Supervision of other normal : 38 w 5 d 2. Gestational diabetes: patient has not been very compliant with diet and accuchecks admitted for induction of labor fetus reassuring GBS negative plan cytotec 25 ug intravaginal x one dose PDMP PDMP Reviewed: Not Reviewed Attestations Medical Necessity Statement*: patient at 38 w 5 d, with gestational diabetes, admitted for induction of labor Coding Level of Care Code Acute Code for Chg Fwd Diagnoses Supervision of other normal Z34.80 Gestational diabetes O24.419
[2024-09-03 08:57] LABS: Hematocrit 32.2 % (36-47); Hemoglobin 10.00 g/dL (11.27-16.99); Mean Corpuscular HGB Conc 31.1 g/dL (30-55); Mean Corpuscular Hemoglobin 25.4 pg (27-33); Mean Corpuscular Volume 81.9 fl (85-98); Nucleated Red Blood Cells % 0 %; Platelet Count 152 10^3/cmm (157-399); Red Blood Count 3.93 10^6/uL (3.85-5.65); White Blood Count 6.07 10^3/uL (3.29-11.43)
--- NOTE | 2024-09-03 12:40 | P.PN_ITS ---
CLASSIFIED AD TAKER Subjective 2 Subjective: Interval history: fetus reassuring mild UCs cervix: 2-3 cm / -3 plan start pitocin per protocol Labor: Station: 0 Amniotic Membrane Status: Ruptured Monitor Mode: Palpation Contraction Pattern: Regular Status: Category I Vitals/I&O/Wt Last Vital Signs Temp 97.9 F 09/04/24 00:15 Pulse 91 09/04/24 02:15 Resp 16 09/04/24 02:15 BP 124/83 09/04/24 02:15 Pulse Ox 97 09/04/24 02:15 O2 Del Method Room Air 09/04/24 02:15 09/03/24 09/03/24 09/04/24 14:59 22:59 06:59 Intake Total 189.167 / 546.853 7681.00 / 3219.167 959.833 / 4179.000 Balance 189.167 / 763.234 3575.00 / 3219.167 959.833 / 4179.000 Weight last 48 hrs Weight 193 lb Physical Exam 2 Urinary Catheter Management: Naylor Latex: Cath Placed During This Visit: yes, but has since been removed by the nurse Reason for Continuing Indwelling Catheter: Decision to DC Catheter Urinary Catheter Date of Insertion: 09/03/24 Urinary Catheter Time of Insertion: 17:00 Date Urinary Catheter Removed: 09/03/24 Time Urinary Catheter Discontinued: 20:18 Data 09/03/24 08:05 A&P Assessment and plan 1. Supervision of other normal : 2. Gestational diabetes: PDMP PDMP Reviewed: Not Reviewed Attestations 2 Medical Necessity Statement*: patient at 38 w 5 d, h/o gestational diabetes, admitted for induction of labor Coding Level of Care Code Acute Code for Chg Fwd Diagnoses Supervision of other normal Z34.80 Gestational diabetes O24.419
[2024-09-03] MEDS: oxytocin 30 UNIT/500 ML BAG IV (13:30)
[2024-09-03] MEDS: ROPivacaine premix 200 MG/100 ML PREMIX 13 MG EPIDURAL (16:25)
--- NOTE | 2024-09-03 16:28 | P.ANESASSM_ITS ---
Pre-Anesthetic Assessment Height/Weight: Height 1.57 m Weight 87.543 kg Temp Pulse Resp BP Pulse Ox O2 Del Method 97.0 F L 94 16 124/73 100 Room Air 09/03/24 07:19 09/03/24 16:26 09/03/24 07:46 09/03/24 16:26 09/03/24 16:25 09/03/24 08:43 Preop Diagnosis: IUP labor epidural Familial anesthetic complications: None Was Beta Slick taken within 24 hours: N/A Was Clonidine taken within 24 hours: N/A Social No alcohol and No tobacco Exam alert, oriented x 3 and clear to auscultation bilaterally Airway Mallampati: Class II Dentition: full History/ROS No significant history except as noted Pulmonary None reported CV/HEM Anemia None reported Hepatic None reported GI Gastroesophageal Reflux Disease Metabolic GDM [facility] None reported Neuropsych None reported Anesthetic Plan ASA status: 2 Anesthesia: Regional (specify below) (epidural ) Risk of > 500 ml blood loss (7ml/kg in children): Yes, adequate IV access and fluids planned Medications/Allergies Home Medications ?Medication ?Instructions ?Recorded ?Confirmed ?Last Taken ?Type PNV 153-FA 400 mcg-om3 35 mg-dha 1 tab PO DAILY 09/03/24 Unknown History 25 mg-epa 5 mg-fish oil chew tablet ( Gummies) blood-glucose meter (Blood Glucose #1 ea 06/30/2409/19 Unknown Rx Monitoring kit) blood-glucose sensor (Dexcom G6 #3 ea 07/16/24 5 Unknown Rx Sensor device) blood-glucose transmitter (Dexcom #1 07/16/2409/01 Unknown Rx G6 Transmitter device) blood-glucose,explosive operator bomb,cont #1 07/16/24 09/01/24 Un known Rx (Dexcom G6 Residential Solar Sales Consultant) blood sugar diagnostic (Accu-Chek #100 ea 07/25/2409/19 Unknown Rx Guide test strips) lancets 33 gauge (TRUEplus Lancets) #100 ea 07/29/24 0 09/01/24 Unknown Rx ferrous sulfate 325 mg (65 mg 325 mg PO DAILY #30 tabs 08/19/24 09/03/24 Unknown Rx iron) tablet Allergies Allergy/AdvReac Type Severity Reaction Status Date / Time promethazine (From Phenergan) Allergy Intermediate confusion, Verified 09/01/24 08:02 loss of memory Current Medications Generic Name Dose Route Start Last Admin Trade Name [place] PRN Reason Stop Dose Admin Calcium Carbonate 1,000 mg 09/03/24 07:46 09/03/24 14:58 Calcium Carbonate 500 Mg Chew Tablet PO 1,000 mg Q4H PRN Administration Heartburn/Indigestion (Use 1st) Dextrose/Lactated Ringer's 1,000 mls @ 125 mls/hr 09/03/24 08:00 09/03/24 14:59 Dextrose 5%-Lactated Ringers IV 0 mls/hr .Q8H MAX Infusion Oxytocin 30 unit in 500 mls @ 1 mls/hr 09/03/24 13:00 09/03/24 14:15 Pitocin IV 4 milliunit/min .Q24H MAX 4 mls/hr Protocol Titration 1 MILLIUNIT/MIN Ropivacaine 200 mg in 100 mls @ 10 mls/hr 09/03/24 15:15 09/03/24 16:25 Naropin Premix EPIDURAL 13 mls/hr .Q10H MAX Administration Lactated Ringer's 1,000 mls @ 999 mls/hr 09/03/24 14:55 09/03/24 15:59 Lactated Ringers IV Infused .Q1H1M PRN Infusion See label comments Lactated Ringer's 1,000 mls @ 999 mls/hr 09/03/24 15:58 09/03/24 15:59 Lactated Ringers IV 09/03/24 16:58 999 mls/hr .Q1H1M ONE Administration PFS Anesthesia Medical History Insomnia No pertinent past medical history neghx: htn,dm,thyroid,dvt/pe PCP: [facility] History of ectopic (~2016) Calculus of left ureter Large stone with high-grade obstruction and refractory pain. Treated with ESWL with excellent response Surgical History Status post extracorporeal shock wave therapy (~2020) History of unilateral salpingectomy 03/25/2016-right, due to ruptured ectopic Family History Mother Hypertension Family/Other Hypertension maternal aunt Heart disease Maternal side in general Grandmother Heart disease Maternal Denies family history of Colon cancer Ovarian cancer Hypercholesteremia Breast cancer Uterine cancer Thyroid disease Stroke Social History Smoking and tobacco/nicotine status: never used tobacco/nicotine Female Reproductive History : 4 Para: 2 Spontaneous abortions: Yes (1) Data Anesthesia 09/03/24 08:05 Short CBC 09/03/24 Range/Units 08:05 WBC 6.07 (3.29-11.43) 10^3/uL Hgb 10.00 L (11.27-16.99) g/dL Hct 32.2 L (36-47) % MCV 81.9 L (85-98) fl Plt Count 152 L (157-399) 10^3/cmm Neut % (Auto) 64.3 % Neut # (Auto) 3.90 (1.8-7.7) 10^3/uL Blood Bank 09/03/24 08:05 Blood Type AB Positive Rho(D) Type Rh positive Antibody Screen Negative Anesthesia Procedures Epidural Time Out Performed: Yes Consents Signed: Procedure Consent Consent: requested by attending/covering physician, risks and benefits reviewed and patient agrees to proceed Lumbar Level: L3-L4 Epidural position: sitting Epidural procedure: sterile prep of area, 1% lidocaine to numb the area, 18 g needle, negative for paresthesia passed, neg for paresthesia, test dose given, 1.5% xylocaine 1:200k epi, 0.2% Ropivacaine bolus ml, placed PCEA, no systemic response, sterile dressing applied, L.U.D. no apparent complications and 0.2% Ropiavacaine @ mls/hr (13) Additional Comments: Pt tolerated well, VS remained stable. Pt educated on STOCKING AND BOX SHOP SUPERVISOR and reports adequate pain relief with epidural
--- NOTE | 2024-09-03 20:25 | PM.DELIVERY ---
Delivery Note: Date of delivery: September 03, 2024 Pre-delivery diagnoses: 38 w 5 d gestational diabetes admitted for induction of labor Post-delivery diagnoses: 38 w 5 d gestational diabetes admitted for induction of labor vaginal delivery repair of second-degree perineal laceration Procedure: induction of labor vaginal delivery repair of second-degree perineal laceration Op report anesthesia: Epidural Delivering Physician: Vega Armando MD Estimated blood loss (mL): 300 Findings: , vigorous female cord gases obtained normal placenta and cord cord blood obtained no episiotomy second-degree perineal laceration repaired EBL 300 cc no complications Pre-Delivery Course: normal labor course fetus reassuring throughout Delivery: vaginal Post-Delivery Status: good History History History 4 Term 2 0 Miscarriages/Ectopic 1 Living Children 2 A&P Assessment and plan 1. Vaginal delivery: PDMP PDMP Reviewed: Not Reviewed Coding Level of Care Code Acute Code for Chg Fwd Diagnoses Vaginal delivery O80
[2024-09-04] VITALS (8 sets, daily range): BP systolic 124–131; BP diastolic 78–92; PULSE 78–91; RESP 16–17; TEMP 36.4–36.6; O2SAT 97–98
[2024-09-04 09:00] LABS: Hematocrit 34.4 % (36-47); Hemoglobin 10.60 g/dL (11.27-16.99); Mean Corpuscular HGB Conc 30.8 g/dL (30-55); Mean Corpuscular Hemoglobin 25.7 pg (27-33); Mean Corpuscular Volume 83.5 fl (85-98); Platelet Count 154 10^3/cmm (157-399); Red Blood Count 4.12 10^6/uL (3.85-5.65); White Blood Count 9.54 10^3/uL (3.29-11.43)
[2024-09-04] MEDS: PRENATAL VIT NO.130/IRON/FOLIC 1 EACH TABLET PO (09:31)
[2024-09-04] MEDS: benzocaine-menthol 78 gm Canister 1 SPRAY TOPICAL (09:32)
--- NOTE | 2024-09-04 13:50 | P.PN_ITS ---
TATTOO TECHNICIAN Subjective 2 Subjective: Interval history: no c/o no bleeding, pain eating, voiding, ambulating well caring for without any problems Labor: Station: 0 Amniotic Membrane Status: Ruptured Monitor Mode: Palpation Contraction Pattern: Regular Status: Category I Vitals/I&O/Wt Last Vital Signs Temp 97.6 F 09/04/24 16:21 Pulse 83 09/04/24 16:21 Resp 16 09/04/24 16:21 BP 126/85 09/04/24 16:21 Pulse Ox 98 09/04/24 16:21 O2 Del Method Room Air 09/04/24 16:21 09/04/24 09/04/24 09/04/24 06:59 14:59 22:59 Intake Total 959.833 / 4179.000 1000 / 1000 1000 / 1999 Balance 959.833 / 4179.000 1000 / 1000 1000 / 1999 Weight last 48 hrs Weight 193 lb Physical Exam 2 Narrative: afebrile, VS normal comfortable, awake, alert Abd: soft, nontender. fundus firm Ext: no edema; nontender Hgb 10.6 Urinary Catheter Management: Naylor Latex: Cath Placed During This Visit: yes, but has since been removed by the nurse Reason for Continuing Indwelling Catheter: Decision to DC Catheter Urinary Catheter Date of Insertion: 09/03/24 Urinary Catheter Time of Insertion: 17:00 Date Urinary Catheter Removed: 09/03/24 Time Urinary Catheter Discontinued: 20:18 Data 09/04/24 08:50 A&P Assessment and plan 1. Vaginal delivery: PPD # 1 doing well discharge to home today instructions and precautions given call/return if fever, chills, headache, blurry vision, nausea, vomiting, abdominal pain; vaginal bleeding or discharge; shortness of breath, chest pain, leg pains or swelling; inability to void, perineal pain or swelling; feelings of depression or mood changes; thoughts of suicide or harming others; inability to care for baby. f/u in 6 weeks or PRN PDMP PDMP Reviewed: Not Reviewed Attestations 2 Medical Necessity Statement*: patient s/p , plan to discharge to home today Coding Level of Care Code Acute Code for Chg Fwd Diagnoses Vaginal delivery O80
--- NOTE | 2024-09-04 13:55 | PM.OBGYDC ---
Discharge Providers [facility] STEWARD Date of Admission: 09/03/24 08:34 Date of Discharge: 09/04/24 Attending Provider at Admission: Vega Armando MD Attending Provider at Discharge: Vega Armando MD Consults: none Primary MARINE STEWARD: Vega Armando MD Primary Care Provider: Meg Colmenares APN Diagnoses at Discharge Discharge Diagnosis 1. Vaginal delivery: Details from hospital stay: 29 y.o. Ec 1 EDC September 12, 2024 At 38 w 5 d complicated by GDM, controlled with diet However, patient has not been compliant with diet Has not brought in accucheck records she was admitted for induction of labor She was given cytotec 25 ug intravaginal x one dose, then started on pitocin She progressed to complete dilatation fetus was reassuring throughout Patient delivered vaginally without any complications and had repair of second-degree perineal laceration patient did well and was discharged to home on the first day Reason for Visit Reason for Visit: IOL, gestational diabetes Brief History: 29 y.o. Ec 1 EDC September 12, 2024 At 38 w 5 d complicated by GDM, controlled with diet However, patient has not been compliant with diet Has not brought in accucheck records she was admitted for induction of labor Hospital Course Hospital Course 29 y.o. Ec 1 EDC September 12, 2024 At 38 w 5 d complicated by GDM, controlled with diet However, patient has not been compliant with diet Has not brought in accucheck records she was admitted for induction of labor She was given cytotec 25 ug intravaginal x one dose, then started on pitocin She progressed to complete dilatation fetus was reassuring throughout Patient delivered vaginally without any complications and had repair of second-degree perineal laceration patient did well and was discharged to home on the first day Information Peripartum Data: Delivery Method: Vaginal Laceration description: Perineal - 2nd Degree Episiotomy description: None complications: none Physical Exam Narrative: afebrile, VS normal comfortable, awake, alert Abd: soft, nontender. fundus firm Ext: no edema; nontender Hgb 10.6 Urinary Catheter Management: Naylor Latex: Cath Placed During This Visit: yes, but has since been removed by the nurse Reason for Continuing Indwelling Catheter: Decision to DC Catheter Urinary Catheter Date of Insertion: 09/03/24 Urinary Catheter Time of Insertion: 17:00 Date Urinary Catheter Removed: 09/03/24 Time Urinary Catheter Discontinued: 20:18 History History History 4 Term 2 0 Miscarriages/Ectopic 1 Living Children 2 Discharge Data Studies Completed and Pending Laboratory Results WBC 9.54 10^3/uL (3.29-11.43) 09/04/24 08:50 RBC 4.12 10^6/uL (3.85-5.65) 09/04/24 08:50 Hgb 10.60 g/dL (11.27-16.99) L 09/04/24 08:50 Hct 34.4 % (36-47) L 09/04/24 08:50 MCV 83.5 fl (85-98) L 09/04/24 08:50 MCH 25.7 pg (27-33) L 09/04/24 08:50 MCHC 30.8 g/dL (30-55) 09/04/24 08:50 RDW 15.2 % (12.1-15.1) H 09/04/24 08:50 Plt Count 154 10^3/cmm (157-399) L 09/04/24 08:50 MPV 11.1 fL (7.4-10.4) H 09/04/24 08:50 Neut % (Auto) 64.3 % 09/03/24 08:05 Lymph % (Auto) 27.5 % 09/03/24 08:05 [place] % (Auto) 6.8 % 09/03/24 08:05 Eos % (Auto) 0.8 % 09/03/24 08:05 Baso % (Auto) 0.3 % 09/03/24 08:05 Neut # (Auto) 3.90 10^3/uL (1.8-7.7) 09/03/24 08:05 Lymph # (Auto) 1.7 10^3/uL (0.8-4.8) 09/03/24 08:05 [place] # (Auto) 0.4 10^3/uL (0.2-0.9) 09/03/24 08:05 Eos # (Auto) 0.1 10^3/uL (0.0-0.8) 09/03/24 08:05 Baso # (Auto) 0.0 10^3/uL (0.0-0.1) 09/03/24 08:05 Nucleated RBC % (auto) 0 % 09/03/24 08:05 Nucleated RBCs # 0.0 /100WBC 09/03/24 08:05 POC Glucose 108 mg/dL (70-110) 09/03/24 09:01 Blood Type AB Positive 09/03/24 08:05 Rho(D) Type Rh positive 09/03/24 08:05 Antibody Screen Negative 09/03/24 08:05 Procedures Performed induction of labor vaginal delivery repair of second-degree perineal laceration Vitals Last Vital Signs Temp 97.6 F 09/04/24 16:21 Pulse 83 09/04/24 16:21 Resp 16 09/04/24 16:21 BP 126/85 09/04/24 16:21 Pulse Ox 98 09/04/24 16:21 O2 Del Method Room Air 09/04/24 16:21 Results Labs OB ([facility]): Obstetrics US 08/18/24 Obstetrics US/Biophysical Profile 08/13/24 Blood Type AB Positive 09/03/24 Antibody Screen Negative 09/03/24 Hct, (36-47) 34.4 % L Today Hgb, (11.27-16.99) 10.60 g/dL L Today Rho(D) Type Rh positive 09/03/24 Plt Count, (157-399) 154 10^3/cmm L Today Hep Bs Antigen, (Nonreactive) Non-reactive 02/18/24 Hepatitis C Antibody, (Nonreactive) Non-reactive 02/18/24 Rubella IgG Antibody, (0.0-10.0) 48.0 IU/mL H 02/18/24 RPR, (Nonreactive) Nonreactive 02/18/24 HIV 1&2 Ab & HIV 1 Ag, (Non-Reactiv) Non-reactive 02/18/24 TSH, (0.27-4.20) 1.63 uIU/mL 02/18/24 Glucose 1 Hr 50 gm, (85-140) 148 mg/dL H 06/19/24 Gest Glucose Tolerance mg/dL 06/27/24 HCG, Qual, (Negative) Positive H 02/08/24 Urine Opiates Screen, (Negative) Negative ng/mL 02/18/24 Ur Barbiturates Screen, (Negative) Negative ng/mL 02/18/24 Ur Phencyclidine Scrn, (Negative) Negative ng/mL 02/18/24 Ur Amphetamines Screen, (Negative) Negative ng/mL 02/18/24 U Benzodiazepines Scrn, (Negative) Negative ng/mL 02/18/24 Urine Cocaine Screen, (Negative) Negative ng/mL 02/18/24 U Marijuana (THC) Screen, (Negative) Negative ng/mL 02/18/24 Micro Urine Specimen 02/18/24 Pap Smear Interpret See note 04/11/24 Discharge Plan Discharge Patient Disposition: Home Condition: Stable Prescriptions: Continued Gummies 400 mcg-35 mg- 25 mg-5 mg tablet,chewable 1 tab PO DAILY ferrous sulfate 325 mg (65 mg iron) tablet 325 mg PO DAILY Qty: 30 2RF Discontinued (DME) Dexcom G6 Sensor Device See Rx Instructions .Route Qty: 3 0RF Rx Instructions: As directed (DME) Dexcom G6 Supervisor [place] Repair Misc See Rx Instructions .Route Qty: 1 0RF Rx Instructions: As directed (DME) Dexcom G6 Transmitter Device See Rx Instructions .Route Qty: 1 0RF Rx Instructions: As directed (DME) blood-glucose meter [Blood Glucose Monitoring] Kit See Rx Instructions .MEDSUPPLY Qty: 1 0RF Rx Instructions: please include test strips, lancets, and alcohol wipes (DME) Accu-Chek Guide test strips Strip See Rx Instructions .Route Qty: 100 0RF Rx Instructions: As directed (DME) lancets [TRUEplus Lancets] 33 gauge misc See Rx Instructions .ROUTE .COMPLEX Qty: 100 4RF Dose Instruction: USE TO TEST BLOOD SUGAR FOUR TIMES DAILY - FASTING IN THE MORNING THEN TWO HOURS AFTER EACH MEAL. Rx Instructions: USE TO TEST BLOOD SUGAR FOUR TIMES DAILY - FASTING IN THE MORNING THEN TWO HOURS AFTER EACH MEAL. Discharge Order = DC NOW: Discharge Order (Routine); Ordered 09/04/24 Ordered By: Vega Armando Referrals: Malena Mortensen NP [Nurse Practitioner, [facility]] Discharge Diet: Usual diet Discharge Activity: Increase activity as tolerated Patient Instructions: Depression (DC), Opioid Safety (DC), Preeclampsia and Eclampsia After Delivery (GEN), Hemorrhage (DC), OB Discharge Report, OB Food/Drug Interaction Guide, Opioid Safety, OB Home Care, OB Vaginal Deliveries - C, Patient Portal & [employer] Instructions, Abnormal Bleeding Discharge Attestations MARINE STEWARD Time Spent in Discharge Care*: less than 30 min Coding Level of Care Code Acute Code for Chg Fwd Diagnoses Vaginal delivery O80
--- NOTE | 2024-09-04 14:44 | ANE.PACU2 ---
Inpatient post-anesthesia follow up: Airway intact: Yes Vital signs: Temperature 97.6 F Pulse Rate 87 Respiratory Rate 17 Blood Pressure 131/86 Pulse Oximetry 97 Oxygen Delivery Me thod Room Air Oxygen Flow Rate Fraction of Inspir ed Oxygen Hydration adequate: Yes Nausea and vomiting: No Pain level: 1 Mental status: Baseline Epidural Start/End: Epidural Start Date: 09/03/24 Epidural Start Time: 16:00 Epidural End Date: 09/03/24 Epidural End Time: 22:00
== END 2024-09-04 20:52 | disposition home or self-care (01) | DRG 807 ==
LOC: OPOB 08:35 → OBGYN 08:35
PROVIDERS: Admitting Provider Obstetrics & Gynecology; PCP Nurse Practitioner Family; Visit Provider Obstetrics & Gynecology
DX: O24.420 Gestational diabetes mellitus in childbirth, diet controlled (principal); Z37.0 Single live birth; O70.1 Second degree perineal laceration during delivery; Z3A.38 38 weeks gestation of pregnancy
CPT/HCPCS: 36415; 36416; 51702; 59025; 59409; 82962; 85025; 85027; 86850; 86900; J2590; J2795; J7120; J7121; J9999

== ENCOUNTER → 2025-02-24 10:48 | Outpatient (BNVA) | payer MEDICAID, SELFPAY | PROVIDERS: PCP Clinical Nurse Specialist Adult Health; Visit Provider Clinical Nurse Specialist Adult Health | DX: R10.31 Right lower quadrant pain (principal); R30.0 Dysuria | CPT/HCPCS: 81000; 81025; 87086 ==